=== PATIENT | male | born 1935 | race Caucasian/White ===

== ENCOUNTER → 2018-12-28 09:49 | Outpatient (CLI) | payer MEDICARE, OTHER, SELFPAY ==
--- NOTE | 2018-12-28 | DI.RAD.S_ITS ---
PROCEDURE: XR KNEE LT 3V INDICATIONS: L KNEE PAIN TECHNIQUE: 3 views of the knee were acquired. COMPARISON: None. FINDINGS: Bones: No fractures or dislocations. No suspicious bony lesions. Mild degenerative joint disease Soft tissues: No joint effusion. No suspicious soft tissue calcifications. IMPRESSION: Mild left knee joint degeneration. Dictated by: Usman Ackerman M.D. on 12/28/2018 at 11:32 Approved by: Usman Ackerman M.D. on 12/28/2018 at 11:46
== END ==
PROVIDERS: PCP Family Medicine; Visit Provider Family Medicine
DX: M25.562 Pain in left knee (principal); M17.12 Unilateral primary osteoarthritis, left knee
CPT/HCPCS: 73562

== ENCOUNTER → 2020-01-30 14:09 | Outpatient (CLI) | payer MEDICARE, OTHER, SELFPAY ==
[2020-01-31 09:23] LABS: COVID19 Sendout Not Detected (Not Detect)
== END ==
PROVIDERS: PCP Family Medicine; Visit Provider Physician Assistant
DX: Z01.812 Encounter for preprocedural laboratory examination (principal)
CPT/HCPCS: 87635

== ENCOUNTER 2020-02-02 10:58 | Day surgery (SDC) | payer MEDICARE, OTHER, SELFPAY ==
[2020-01-28 07:39] VITALS: BMI 25.2
[2020-02-02] VITALS (8 sets, daily range): BP systolic 125–155; BP diastolic 70–79; PULSE 68–99; RESP 8–16; TEMP 36.3–36.8; O2SAT 92–99; BMI 25.0
[2020-02-02] MEDS: GABAPENTIN 300 MG CAPSULE PO (11:53)
[2020-02-02] MEDS: LACTATED RINGERS 1,000 ML 42 ML IV ×2 (11:53→14:38)
[2020-02-02] MEDS: ACETAMINOPHEN 325 MG TABLET 975 MG PO (11:53)
--- NOTE | 2020-02-02 12:51 | PM.PREOP ---
Pre-operative Note COVID-19 COVID-19 status: Negative Result date/Date tested (Pos, Neg/Pending): 01/30/20 Interval Note History & Physical reviewed/Exam performed by Physician: Yes Changes to H&P: No
[2020-02-02] MEDS: CEFAZOLIN 2 GM/100 ML FROZ.PIGGY IV (13:15)
[2020-02-02] MEDS: BUPIVACAINE 0.5% (PF) VIAL 30 ML INJ (13:38)
--- NOTE | 2020-02-02 13:39 | SUR.OPER ---
Supine on padded OR bed, head on pillow, arms secured on padded arm boards at <90 degrees abduction, legs uncrossed, safety belt at thigh, tape over blanket over lower legs.
[2020-02-02] MEDS: CEFAZOLIN 1 GM/50 ML FROZ.PIGGY IV (14:55)
--- NOTE | 2020-02-02 16:15 | P.OP_ITS ---
Operative Date/Time/Diagnoses Date of procedure: 02/02/20 Time of procedure: 16:15 Pre-op diagnosis: Bilateral inguinal hernias reducible Post-op diagnosis: other (Bilateral recurrent inguinal hernias reducible (patient gave no history of prior inguinal hernia repairs.)) Procedure & Clinicians Procedure: Bilateral repair of recurrent inguinal hernias with plug and patch technique Same procedure as scheduled: Yes Indications: Bilateral symptomatic hernias Surgeon: Romulo Jang Click Yes if Unassisted: Yes Anesthesia Type: General Operative Notes Findings: Once patient was clipped it was apparent that he has had bilateral inguinal hernia repairs. During the operation it was clear that they used mesh. He gave no history of this preoperatively. He only mentioned in umbilical hernia repair Closure Type: primary Specimen(s): none sent Prosthetic devices, grafts, tissues, transplants, or devices: Mesh Estimated Blood Loss (mL): 20 Blood products transfused: none Procedure in detail: The patient was placed supine on the operating room table and underwent general LMA anesthesia. He was prepped and draped in the usual fashion. A transverse incision was made overlying the left internal ring and carried down to the level of the external oblique. The external oblique was opened parallel with its fibers through the external ring. This entire area was scarred in by his prior operation and the inclusion of mesh. The cord structures were quite difficult to identify since the floor was essentially obliterated and preperitoneal fat was adherent to the overlying cord structures and the mesh in the region. I was able to separate I would appeared to be the cord structures and they were Elevated. The floor was opened and preperitoneal fat was reduced and a large plug was placed in the defect. It was tacked into place with interrupted 0 Ethibond suture and then the floor was closed over this large plug using 0 Ethibond sutures. A patch was placed across the floor and tacked at the pubic tubercle, the edge of mesh which was adherent to the rectus. Laterally to what appeared to be the ilioinguinal ligament, and superior lateral to the cord but under the external oblique which had fused to mesh at the prior operation. The opening was modified as necessary to prevent tight constriction of the cord. Sutures of 0 Tycron were used to secure the mesh. The external oblique was closed with a running 3 0 Vicryl. The subcu was closed with interrupted 3 0 Vicryl. The skin was closed with a running 4 0 Vicryl subcuticular Attention was turned to the opposite side where a mirror incision was made. It was carried down to the external oblique which was opened parallel with its fibers through the external ring. The dissection was a little easier on the right. I was able to identify the cord structures fairly well and them from the adherent underlying floor. They were elevated using a Larry drain. I the floor off some opened it and reduced a large amount of preperitoneal fat. From this point on the operation was identical placing a large plug and tacking it into place with a 0 Ethibond suture. The floor was closed over it with interrupted Ethibond suture. The patch was then placed and tacked to the pubic tubercle, the posterior lamella the anterior rectus sheath, the ilioinguinal ligament superior and lateral the cord but under the external oblique which had fused to mesh from the prior operation. The external oblique was closed with a running 0 Ethibond. The subcu was closed with interrupted 3 0 Vicryl and the skin was closed with a 4 0 Vicryl subcuticular stitch and Steri- Strips. Steri-Strips were also applied to the opposite side. Dressings were applied, the patient was awakened, and the patient was taken to the recovery area in good condition. Complications: none Post-operative Condition: stable Disposition: PACU
--- NOTE | 2020-02-02 16:20 | SUR.PHASEI ---
Denies pain/nausea, HOB elevated, juice given.
--- NOTE | 2020-02-02 16:29 | SUR.PHASEI ---
Pt is wearing one yellow ring/band. Dozing intermittently, Glasses returned to patient
--- NOTE | 2020-02-02 17:33 | SUR.PHASEII ---
Patient to car via wheelchair. Friend, Reese, picking patient up and taking home. All instructions reviewed with Reese and patient.
== END 2020-02-02 17:34 | disposition home or self-care (01) ==
PROVIDERS: PCP Family Medicine; Referring Provider Specialist; Visit Provider Specialist
PROC: (CPT 49520; principal; 2020-02-02 12:15)
DX: K40.21 Bilateral inguinal hernia, without obstruction or gangrene, recurrent (principal); E11.9 Type 2 diabetes mellitus without complications; K21.9 Gastro-esophageal reflux disease without esophagitis; Z79.84 Long term (current) use of oral hypoglycemic drugs
CPT/HCPCS: 49520; C1781; J0690; J1170; J1885; J2405; J2704; J3010

== ENCOUNTER → 2021-05-20 13:20 | Outpatient (CLI) | payer MEDICARE, OTHER, SELFPAY ==
--- NOTE | 2021-05-20 | DI.CT.S_ITS ---
PROCEDURE: CT CHEST WO CON INDICATIONS: Esophagitis, unspecified without bleeding TECHNIQUE: Noncontrast 5 mm thick sections acquired from the pulmonary apices to the posterior costophrenic angles. 1 mm lung window, 5 mm thick coronal and sagittal and 7 mm axial MIP reformats were then acquired. For radiation dose reduction, the following was used: automated exposure control, adjustment of mA and/or kV according to patient size. COMPARISON: None. FINDINGS: Image quality: Excellent. Lungs and pleura: Small region of mild subpleural ground-glass density within the left upper lobe anteriorly is present. There is mild dependent left basilar atelectasis versus pneumonia. There is a spiculated subpleural nodule within the right lower lobe anterolaterally measuring 5 mm (series 3, image 236). No pleural effusions or pneumothorax. Central and peripheral airways are patent and normal in caliber. Mediastinum: Heart size is normal. Severe calcification of the coronary vasculature. No pericardial effusion. No mediastinal adenopathy by size criteria. Thoracic aorta and central pulmonary arteries are normal in size. Esophagus is normal in caliber. Large hiatal hernia. Bones and chest wall: No suspicious bony lesions. No vertebral body compression fractures. No axillary or supraclavicular adenopathy by size criteria. Thyroid gland is within normal limits on noncontrast imaging . Abdomen: Visualized portions of the upper abdomen demonstrate multiple small calculi within the gallbladder lumen as well as several nonobstructing calculi within the left kidney, largest of which measures at least 20 mm diameter. Bilateral renal scarring is present. There is possible moderate right hydronephrosis. IMPRESSION: 1. Large hiatal hernia. No evidence of esophagitis by noncontrast chest CT. Endoscopy may be helpful for further assessment. 2. Coronary artery disease. 3. Right lower lobe pulmonary nodule. Follow-up is recommended as below. 4. Cholelithiasis. 5. Left renal calculi. 6. Bilateral renal scarring. 7. Possible right hydronephrosis. This could be further assessed initially with ultrasound, if clinically indicated. Fleischner Society criteria for SOLID lung nodule followup. Nodule size (mm)Low-risk patientHigh-risk patient<6 (single or multiple)No routine followup.Optional CT at 12 months. 6-8 (single or multiple)CT at 6-12 months, then optional CT at 18-24 mo.CT at 6-12 months, then CT at 18-24 months. >8 (single)CT, PET-CT, or biopsy at 3 months. Same as for low-risk pts. >8 (multiple)CT at 3-6 months, then optional CT at 18-24 mo.CT at 3-6 months, then CT at 18-24 months. Recommendations do not apply to lung cancer screening, patients with immunosuppression, or patients with known primary cancer. Dictated by: Edson Hurtado M.D. on 05/20/2021 at 14:28 Approved by: Edson Hurtado M.D. on 05/20/2021 at 14:34
== END ==
PROVIDERS: PCP Family Medicine; Referring Provider Family Medicine; Visit Provider Family Medicine
DX: R13.10 Dysphagia, unspecified (principal); K20.90 Esophagitis, unspecified without bleeding; K44.9 Diaphragmatic hernia without obstruction or gangrene; I25.10 Atherosclerotic heart disease of native coronary artery without angina pectoris; R91.1 Solitary pulmonary nodule; K80.20 Calculus of gallbladder without cholecystitis without obstruction; N20.0 Calculus of kidney
CPT/HCPCS: 71250

== ENCOUNTER → 2021-06-16 08:09 | Outpatient (CLI) | payer MEDICARE, OTHER, SELFPAY ==
--- NOTE | 2021-06-16 | DI.RAD.S_ITS ---
PROCEDURE: [place] BARIUM SWALLOW INDICATIONS: Chest pain on breathing;DYSPHAGIA COMPARISON: [facility], CT, CT CHEST WO CON, 05/20/2021, 13:29. FINDINGS: Limited single-contrast examination was performed secondary to patient factors. There is moderate aspiration of orally administered barium. There is a moderate hiatal hernia. There is a possible eccentric mass narrowing the distal esophagus. Evaluation is limited secondary to truncated examination. IMPRESSION: 1. Possible distal esophageal mass. Further assessment with endoscopy is recommended. 2. Moderate aspiration. Dictated by: Edson Hurtado M.D. on 06/16/2021 at 9:57 Approved by: Edson Hurtado M.D. on 06/16/2021 at 10:00
--- NOTE | 2021-06-16 08:28 | DI.CT.S_ITS ---
PROCEDURE: CT SOFT TISSUE NECK WO CON INDICATIONS: Chest pain on breathing;DYSPHAGIA TECHNIQUE: Non-contrast 3.0 mm axial sections acquired from the sella to the aortic arch. Additional oblique axial 3.0 mm sections acquired through the pharynx. 3 mm thick coronal and sagittal reformats were generated. For radiation dose reduction, the following was used: automated exposure control. COMPARISON: [facility], MR, MR FACE WITH/WITHOUT CONTRAST, 11/23/2020, 12:27. [facility], RF, [place] BARIUM SWALLOW, 06/16/2021, 8:25. [facility], CT, CT CHEST WO CON, 05/20/2021, 13:29. FINDINGS: Image quality: Excellent. Lymph nodes: No enlarged lymph nodes seen throughout the neck. Vessels: Non-opacified vessels appear normal in caliber. Neck spaces: As noted on prior exam, there is asymmetry at the left base of tongue. Exam is limited without contrast. Glands: The parotid and submandibular glands appear normal, without stones. 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 Lung apices appear clear. Superficial soft tissues appear normal. Left zygomatic arch postsurgical fixation is present. There is opacification and sclerosis within the left mastoid air cells. In addition, there is absence of portions of the medial mastoid air cells as well as medial sphenoid and petrous bones. There is scalloping and lucency extending to the left side of the skull base. It is noted that this region was involved with enhancing soft tissue mass is seen on prior MR 11/23/2020. As identified on prior exam, perineural spread was felt to be present. This cannot be evaluated on current exam. IMPRESSION: 1. Portions of the left mastoid, sphenoid and skull base osseous destruction as described above, corresponding to area of previously enhancing mass lesion most consistent with malignancy. Extent of soft tissue mask cannot be evaluated on current exam secondary to lack of contrast. In addition, no interval prior exams are available for comparison to determine extent of potential surgical intervention. As further investigation is warranted, MRI neck with and without contrast should be obtained. 2. Asymmetric appearance of the left tongue base, noting poorly defined left tongue base mass on prior exam. This exam is limited secondary to lack of contrast and as clinically indicated, further evaluation with contrast CT neck or MR is recommended. Dictated by: Josseline Mendoza M.D. on 06/16/2021 at 11:26 Approved by: Josseline Mendoza M.D. on 06/16/2021 at 11:51
== END ==
PROVIDERS: PCP Family Medicine; Referring Provider Family Medicine; Visit Provider Family Medicine
DX: R22.0 Localized swelling, mass and lump, head (principal); R13.10 Dysphagia, unspecified; R07.1 Chest pain on breathing; R06.00 Dyspnea, unspecified; K44.9 Diaphragmatic hernia without obstruction or gangrene
CPT/HCPCS: 70490; 74220

== ENCOUNTER → 2022-01-11 09:01 | Outpatient (CLI) | payer MEDICARE, OTHER, SELFPAY ==
--- NOTE | 2022-01-11 09:03 | DI.CT.S_ITS ---
PROCEDURE: CT CHEST ABDOMEN WO CON INDICATIONS: Pain in throat;Aphagia;Abnormal weight loss TECHNIQUE: After the administration of oral contrast, 5 mm thick sections acquired from the pulmonary apices to the iliac crests. 5 mm thick coronal and sagittal reformats acquired, with additional 7 mm coronal MIP reformats through the lungs. For radiation dose reduction, the following was used: automated exposure control, adjustment of mA and/or kV according to patient size. COMPARISON: [facility], CT, CT CHEST WO [facility], 05/20/2021, 13:29. FINDINGS: Image quality: Excellent. CHEST: Lungs and pleura: No acute pulmonary opacities. The previously seen subpleural nodule within the right lung base anterolaterally has increased in size, currently measuring 7 mm diameter. Mild bibasilar scarring is present. Mild biapical scarring is present. Mild reticulonodular density within the left lung base posteriorly. Calcified granuloma within the superior aspect of the right major fissure. No pleural effusions or pneumothorax. Central and peripheral airways are patent and normal in caliber. Mediastinum: Heart size is normal. Trace pericardial effusion, new since the prior examination Severe calcification of the coronary vasculature. No pericardial effusion. No mediastinal adenopathy by size criteria. Thoracic aorta and central pulmonary arteries are normal in size. Esophagus is normal in caliber. No change in large hiatal hernia. Chest wall: No axillary or supraclavicular adenopathy by size criteria. Thyroid gland is grossly unremarkable on noncontrast imaging . ABDOMEN: Solid organs: Liver is normal in size. Gallbladder demonstrates calculi within the gallbladder lumen without evidence of wall thickening to indicate cholecystitis. . Pancreas is normal in contours. Spleen is normal in size. No adrenal nodules. Both kidneys are normal in size. There are multiple nonobstructing calculi within the right interpolar kidney, largest of which is inferiorly, measuring 19 mm diameter. Multiple nonobstructing calculi within the left kidney are present, as before, largest of which measures 16 mm diameter within the renal pelvis. No definite hydronephrosis. Peritoneum and bowel: Small and large bowel loops are normal in caliber and wall thickness. No free fluid or air. Nodes and vessels: No retroperitoneal or mesenteric adenopathy by size criteria. Aorta and inferior vena cava are normal in caliber. Miscellaneous: No ventral hernias. No change in sclerotic focus within the T10 vertebral body. IMPRESSION: 1. Reticulonodular density within the left lung base, suggestive of pneumonitis. 2. Hiatal hernia. 3. Coronary artery disease. 4. Increased right lung base nodule. Initial further assessment with PET-CT examination is recommended. 5. Nonobstructing bilateral renal calculi. 6. Cholelithiasis. No evidence of cholecystitis. 7. New trace pericardial effusion. Dictated by: Edson Hurtado M.D. on 01/11/2022 at 9:37 Approved by: Edson Hurtado M.D. on 01/11/2022 at 9:42
== END ==
PROVIDERS: PCP Family Medicine; Referring Provider Family Medicine; Visit Provider Family Medicine
DX: R07.0 Pain in throat (principal); R13.0 Aphagia; R63.4 Abnormal weight loss; I25.10 Atherosclerotic heart disease of native coronary artery without angina pectoris; K44.9 Diaphragmatic hernia without obstruction or gangrene; R91.1 Solitary pulmonary nodule; N20.0 Calculus of kidney; K80.20 Calculus of gallbladder without cholecystitis without obstruction
CPT/HCPCS: 71250; 74150

== ENCOUNTER → 2022-02-23 10:49 | Outpatient (CLI) | payer MEDICARE, OTHER, SELFPAY ==
[2022-02-23 11:58] LABS: COVID19 -Nasal RAPID Negative (Negative)
== END ==
PROVIDERS: PCP Family Medicine; Visit Provider Surgery
DX: Z20.822 Contact with and (suspected) exposure to COVID-19 (principal); Z01.812 Encounter for preprocedural laboratory examination
CPT/HCPCS: 87635

== ENCOUNTER 2022-02-25 10:35 | Inpatient (IN) | payer MEDICARE, OTHER, SELFPAY ==
[2022-02-21 12:00] VITALS: BMI 17.3
[2022-02-24] VITALS (16 sets, daily range): BP systolic 128–145; BP diastolic 48–78; PULSE 68–92; RESP 16–22; TEMP 36–36.4; O2SAT 74–99; BMI 17.3
[2022-02-24] MEDS: LACTATED RINGERS 1,000 ML 100 ML IV ×3 (07:26→21:46)
--- NOTE | 2022-02-24 07:45 | PM.PREOP ---
Pre-operative Note Interval Note History & Physical reviewed/Exam performed by Physician: Yes Changes to H&P: No
[2022-02-24] MEDS: CEFAZOLIN 2 GM/20 ML SYRINGE IV (07:53)
[2022-02-24] MEDS: BUPIVACAINE 0.25% (PF) VIAL 30 ML INJ (08:07)
--- NOTE | 2022-02-24 08:10 | SUR.OPER ---
Supine on padded OR bed, head on pillow, arms secured on padded arm boards at <90 degrees abduction, legs uncrossed, safety belt at thigh, tape over blanket over lower legs.
--- NOTE | 2022-02-24 08:29 | SUR.OPER ---
Patients Upper denture left in place, Left 4th finger gold colored ring taped in place, patient unable to remove. Right Hearing aid removed in OR and placed in Specimen cup with patient label and brought with patient to PACU.
--- NOTE | 2022-02-24 09:08 | SUR.PHASEI ---
0905: Report received from RONALDO Fonseca and time allowed for questions, this RN to assume care of pt.
--- NOTE | 2022-02-24 09:09 | PM.OP.1 ---
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 Bumper at 3 cm from the skin. Specimen(s): none sent Estimated Blood Loss (mL): 10 Procedure in detail: Patient was brought to the operating room placed supine on the table. Bilateral lower extremity compression devices were applied. He received 2 g of Ancef prior to skin incision. He was prepped and draped in sterile fashion. General anesthesia was induced he was intubated with an endotracheal tube. A upper midline incision on the abdomen was made. Fascia was incised the abdomen was entered atraumatically. The stomach was grasped and pursestring was formed with 2 0 silk suture within the body of the stomach x2. Incision was made in the left upper quadrant for the gastrostomy tube which was then placed into the abdomen. Gastrostomy was made and the tube was inserted into the stomach the pursestring was then tightened and secured. The balloon was inflated with 10 mL of saline. The stomach was then tacked to the anterior abdominal wall in 4 quadrants using silk suture. Hemostasis was achieved. The fascia was then closed with running 1. PDS suture in subcutaneous closed with Vicryl and the skin with a running Monocryl. Skin was then sealed with Dermabond and reinforced with Steri-Strips. The bumper of the gastrostomy tube sits at 3 cm from the skin. Patient tolerated procedure well was extubated and transferred to recovery in stable condition. Complications: none Post-operative Condition: stable Disposition: observation
--- NOTE | 2022-02-24 09:35 | SUR.PHASEI ---
3002: Pt A&Ox4, VSS, dressing C/D/I, reports pain as tolerable, appears in no distress and ready to transfer to room. Attempt to call report, RN busy at this time, will return call when available. RONALDO Cedillo x [phone]
--- NOTE | 2022-02-24 09:50 | SUR.PHASEI ---
Report given to receiving RN using SBAR with time allowed for questions. Pt to be transferred to room 218. Left message for spouse.
--- NOTE | 2022-02-24 10:02 | PC.NURSE ---
Day shift: Pt on AC unit from PACu at approx 1000. He is A&Ox4. Reports pain as tolerable. Denies any nausea. Oriented to room and call light. TOlerating SCD's. Call light in reach. Agreees to not get OOB w/o help from staff. Op-site tube appears patent and area/dressing CDI.
[2022-02-24] MEDS: MORPHINE 2 MG/ML INJ IV ×4 (11:58→23:57)
--- NOTE | 2022-02-24 12:21 | DIET.CONS ---
Dietary Consultation Note Assessment: 86y M s/p PEG placement referred to nutrition for TF reccs. Pt with esophageal cancer unable to tolerate any oral intake except small sips water to wet mouth. Pt has had 32% unintentional weight loss in <1y (severe) with current BMI 17.4 (severe). Pt is 25% below ideal body weight. Pt on LR IVF running at 100mL/h. NFPE indicates severe cancer cachexia with severe muscle and fat wasting globally. Pt at high risk for refeeding sydrome per 3 of 4 NICE criteria: BMI <18.5, unintentional weight loss >10% in past 3-6mo, little or no nutritional intake for more than 5d. Pt can start TF morning of 02/25/22 (12-24h after PEG placement). Limit day 1 TF to no more than 500kcals with refeeding labs bid repleting as needed. Pt not be tolerating goal rate TF for up to a week, pt can d/c prior to hitting goal feeds as long as pt not refeeding. Pt to work with home infusion RD to optimize home TF after d/c as pts nutritional goals will need to be adjusted as he gains weight. Jevity 1.2 at goal rate provides 1728 kcals (30kcal/kg), 80g PRO (1.4g/kg), 244g CHO, 57g fat, 1162mL feed water, feeds plus flushes provide 1740mL fluids (30mL/kg). 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 Interventions: 1. Pt at high risk of refeeding syndrome. Limit day 1 TF to no more than 500 calories. 2. Recc bid refeeding labs repleting as needed (Mg, K+, phos) until d/c. 3. Recc initiating gravity bolus enteral feeding of Jevity 1.2 via PEG tube on 02/25/22 as follows: Day 1: 120mL formula with 60mL free water flushes before and after each feed at 0800, 1000, 1300, 1500, and 1900. Day 2: 180mL formula with 60mL free water flushes before and after each feed at 0800, 1000, 1300, 1500, and 1900. Day 3: 240mL formula with 60mL free water flushes before and after each feed at 0800, 1000, 1300, 1500, and 1900. Day 4 (Goal Rate): 280mL formula with 60mL free water flushes before and after each feed at 0800, 1000, 1300, 1500, and 1900. If pt showing signs of formula intolerance or refeeding, do not advance to higher feeding rate and replete to WNL. 4. HOB elevated >30 degrees for 60 min after feeding to reduce risk of aspiration. 5. Okay for pt to d/c prior to meeting goal rate as long as pt tolerating formula, refeeding labs stable, home infusion company ready to start service. 6. [facility] ([phone]) can send pt with 1 or 2 bottles formula if gap in home infusion company starting service. EER: 1,728kcals (30kcal/kg per PCM), 80g PRO (1.4g/kg per PCM), 1,740mL fluids (30mL/kg) Monitoring/Evaluations: f/u Sunday am when RD in office. If RD needs to be contacted before then, please alert Charge Nurse. Electronically Signed by: Dennise Jo 02/24/22 12:21 Clinical Dietitian [address] [address]
--- NOTE | 2022-02-24 14:41 | CM.DPNOTE ---
DCP Note 86 yo male w/ known esophageal cancer, has not been seen by oncology per surgeon, w/scheduled, outpatient placement of g tube by Dr Celis today, now in Rm 218 and requires assist w/arranging outpatient management of newly placed g tube w/feedings, PCP Dr Arzate to manage Spoke w/patient, introduced self and role. Patient lives in an [facility], his lives separately in the [facility] assisted living facility. Patient plans to return home tomorrow, agreeable to referral to an infusion company, provided MCR choice list...no preference. Placed call to [place] [facility] and could not get a hold of someone for referral Placed call to Rex at [facility] and discussed referral . Faxed referral information including [employer] hr developer Dennise Knowles's thorough consult note outlining recs. Plan: Patient expected to DC tomorrow, home via friend's pov, leaving with 2 days of formula. [facility] following for ongoing management/assist, PCP Dr Arzate to follow these orders CM team- Pls f/u w/[facility] Sunday and r/o need for THIAGO RN (?) JABARI
--- NOTE | 2022-02-24 21:39 | PC.NURSE ---
Addendum entered by Estefany Uribe R.N. 02/25/22 07:00: RT consulted re: low oxygenation and they placed him on HFNC and is currently at 3L/min with sat of 94% Addendum entered by Estefany Uribe R.N. 02/25/22 05:50: Per RNNabeel, patient's O2 sat was down into 70's so he increased oxygen to 5L/min per NC and is now at 92% Addendum entered by Estefany Uribe R.N. 02/25/22 02:47: Patient noted to desat into 80's when asleep so oxygen started at 2L/min per NC. Original Note: Patient is alert and oriented. 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 Breath sounds CTA with RA sat of 95%; on continuous oximetry. HRR. Denies nausea. NPO due to dysphagia related to esophageal cancer. Had g-tube placed earlier today and tube is intact with no drainage on dressing and no redness around insertion site. Did complain of RLQ abdominal pain and was nmedicated earlier with Morphine. BT present. Voiding per urinal; denies dysuria. Is able to turn himself in bed. Gait not assessed but is reportedly globally weak. Wearing bilateral calf SCD's. Fall risk score is high and bed alarm is activated.
[2022-02-25] VITALS (15 sets, daily range): BP systolic 120–131; BP diastolic 57–66; PULSE 68–82; RESP 16–18; TEMP 36.1–36.4; O2SAT 89–96
[2022-02-25] MEDS: MORPHINE 2 MG/ML INJ IV ×2 (04:26→08:39)
[2022-02-25] MEDS: LACTATED RINGERS 1,000 ML 100 ML IV (07:28)
[2022-02-25] MEDS: ENOXAPARIN 40 MG/0.4 ML SYRINGE SUBCUT (08:37)
--- NOTE | 2022-02-25 12:27 | P.PN_ITS ---
Subjective Subjective Date Patient Seen: 02/25/22 Time Patient Seen: 12:27 Interval history: No acute events. Tolerated 1st tube feeding without issue. Exam Vital Signs (past 8 hours): - 02/25/22 05:09 02/25/22 05:09 02/25/22 06:00 Temperature 97.4 F L Pulse Rate 70 Respiratory Rate 16 Blood Pressure 120/57 L Pulse Oximetry 96 96 91 Oxygen Delivery Method Nasal Cannula High Flow Nasal Cannula Oxygen Flow Rate 2 6 02/25/22 07:40 02/25/22 07:52 02/25/22 08:18 Temperature Pulse Rate 76 Respiratory Rate 18 Blood Pressure 124/59 L Pulse Oximetry 91 92 Oxygen Delivery Method High Flow Nasal Cannula Oxygen Flow Rate 3 3 02/25/22 10:20 02/25/22 11:30 02/25/22 12:26 Temperature 97.6 F Pulse Rate 81 Respiratory Rate 18 Blood Pressure 126/61 Pulse Oximetry 95 90 L 93 Oxygen Delivery Method Room Air Oxygen Flow Rate 6 5 Oxygen Delivery Method Room Air Oxygen Flow Rate 5 Narrative Exam Narrative: General elderly man alert no distress Abdomen soft gastrostomy tube in place [facility] Medical History (Updated 02/18/22 @ 08:11 by Tyson Celis MD) Diabetes type 2, controlled Essential tremor Gastroesophageal reflux disease Hx of benign neoplasm of brain Hx of bladder cancer Hx of renal calculi Hypertension Surgical History (Updated 02/21/22 @ 12:21 by Antonia Young RN) History of hydrocelectomy (06/19/08) Hx of bilateral inguinal hernia repair (02/02/20) Hx of craniotomy Hx of hernia repair (06/19/08) Family History Father Diabetes mellitus Social History marital status: household members: spouse and none occupational status: previously employed Smoking Status: Former smoker alcohol intake: current substance use type: does not use Assessment & Plan Post-op Postoperative Procedures: Procedures Operation Date: 02/24/22 07:45 Actual Procedure Side Surgeon p Open Gastrostomy Tube placement Not Applicable Tyson Celis MD Postoperative status narrative: 86-year-old 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 He is at high risk of refeeding syndrome and needs careful gradual increase in bolus feeds. Nutrition recommendations were reviewed and appreciated. Covert bolus enteral feeding of Jevity 1.2 via PEG tube Day 1(02/25/22): 120mL formula with 60mL free water flushes before and after each feed at 0800, 1000, 1300, 1500, and 1900. Day 2 (02/26): 180mL formula with 60mL free water flushes before and after each feed at 0800, 1000, 1300, 1500, and 1900. Day 3 (02/27): 240mL formula with 60mL free water flushes before and after each feed at 0800, 1000, 1300, 1500, and 1900. Day 4 (02/28 Goal Rate): 280mL formula with 60mL free water flushes before and after each feed at 0800, 1000, 1300, 1500, and 1900. Quality VTE Deep Vein Thrombosis/Pulmonary Embolism Present on Admission: No
[2022-02-25] MEDS: OXYCODONE 5 MG/5 ML ORAL SOLUTION PO (12:57)
--- NOTE | 2022-02-25 13:28 | CM.DANOTE ---
Initial Discharge Planning note: 86 year old cachectic male admitted 02/24/2022 with malignant neoplasm of esophagus and plan for PEG tube procedure which was done 02/24/22. Patient received first few doses of enteral feeding today so far and is tolerating. Referral was sent by Gaby yesterday to [facility] for tube feeding supplies and management. Per MD he is not discharging til Sunday or Sunday. PCP: Dr Angel Arzate Payer: Medicare, for Life Patient lives alone in the [facility] in [place] and his spouse lives in the [facility]. When asked, he states he has the funds to live in [facility] if needed. Currently he manages his life without help except for friends. No children he states. He drives and is not interested in Home Health. He states a friend will pick him up for transport home when time. When asked about his condition, growing tumor he does not want to speak about. He states he sees his doctor regularly and saw an ENT about 3 months ago. He is not forthcoming with information and many questions must be asked to sort out the picture. He has not seen an oncologist and does not think he has cancer. Spoke with Simone at [facility] and the nurse library circulation clerk and let her know that patient will not discharge til early next week. He is currently inpatient. P: follow closely and notify [facility] when know discharge date. KAITYLNN Discharge Planning/Care Management CM Discharge Assessment Start: 02/25/22 13:18 Freq: Status: Active Protocol: Document 02/25/22 13:19 (Rec: 02/25/22 13:28 [id number]) Discharge Planning Assessment Assigned Cotton Machine Operator Clary Canseco RN/MARBELLAP Advance Directives? Yes Advance Directives on File No History Provided By Patient,Medical Record Has Patient been admitted in last 30 No days? Prior Living Arrangements House Comment Lives in [facility] with [facility]. His spouse is in the [facility] there. He states he has funds that he could also go to [facility] if needed. Household Members none Comment lives alone. No other family involved. Has friends. Type of transporation used prior to Drives own vehicle admit Independent with ADL's Yes Is patient alert and oriented? Yes Caregiver for Another No Barriers to Discharge Yes Comment Needs to learn how to handle new gastrostomy tube. [facility] will manage. Discharge Plan Home Transportation Arrangement Friend Mr Ponce will provide transport home in private vehicle. Referrals Initiated Other Additional Comment [facility] for tube feeding supplies and management. Patient drives so does not qualify for HH and states he does not want HH. Whiteboard Updated in Patient Room with Yes name and ext. # of Cotton Machine Operator Review Status In Process Next Review Type Continued Stay Review Pre-Anesthesia Assessment Start: 02/21/22 12:00 Freq: Status: Complete Protocol: Document 02/21/22 12:00 [facility] (Rec: 02/21/22 12:22 [facility] [id number]) Pre-Anesthesia Assessment Preferred Name Don Patient Information Reviewed Via Chart Review Comment COVID screen not identified Primary Care Provider Angel Arzate Seen Specialist in Last 12 Months Yes Specialist Seen General surgeon Primary Language Barbadian Preferred Language Barbadian Representative Phlebotomy Services Required No Height 182.88 cm Weight 58.06 kg Body Mass Index (BMI) 17.3 Hearing Ability Hard of Hearing,Use of Hearing Aid Comment Very [place] even with hearing aid Hx Anesthesia Reactions No: Severe difficulty with swallowing Hx Family Anesthesia Reaction No Hx Malignant Hyperthermia No Hx Blood Transfusion Reaction No Anesthesia Review Requested No Associate Vice President No alcohol intake current alcohol intake frequency holidays/special occasions only Smoking Status Never smoker how long ago did patient quit smoking 2003 Substance Use Type does not use Patient is completely paralyzed or No completely immobile Mental Status Oriented to own ability Hx Sleep Apnea No CPAP/BIPAP use not prescribed Currently Taking a Beta Kim No Anti-Coagulant Therapy No Cardiac Testing No Hx Pacemaker/ICD No Pacemaker Rep Required? No Diet Type At Home Dysphagia dysphagia Yes: Severe difficulty with swallowing Comment Recent weight loss due to not being able to take in solid foods Urinary Catheter Present No Hx Urinary Self Catheterization No Diabetes Yes Presence of External or Internal Medical No Devices Marital Status Lives With none Patient Discharge Plan Description Return Home Advance Directives? Yes Power of Medical Physics Researcher No
--- NOTE | 2022-02-25 15:22 | PC.NURSE ---
Day shift: Dr Celis contacted by phone and it is OK to not give the 1500 bolus feeding today. Pt residual amount approx 240mls. Plan is to check residual again at approx 1830 and give feeding bolus as ordered. Pt is also aware of this plan.
[2022-02-25] MEDS: SODIUM CHLORIDE 0.9% FLUSH 10 ML IV (20:00)
--- NOTE | 2022-02-25 21:52 | PC.NURSE ---
Addendum entered by Estefany Uribe R.N. 02/26/22 01:04: Patient's O2 sat again down into upper 80's but noted to be mouth breathing. Asked patient if he could breathe through his nose and he states not really. Cannula placed in patient's mouth and sat up to 91% on 8L/min O2. Original Note: Patient is alert and oriented. Breath sounds coarse in bilateral upper lobes and is currently on oxygen at 4L/min per NC with sat of 91%; on continuous oximetry. HRR. Denied nausea. BT hypoactive and denies having flatus. Is voiding per urinal and denies dysuria. Is able to move himself in bed. Gait not assessed at this time but has generalized weakness. States abdominal pain is tolerable tonight and rates severity as only 2/10. Wearing bilateral calf SCD's. Fall risk score is high and bed alarm is activated. Started tube feedings earlier today; remains NPO.
[2022-02-26] VITALS (16 sets, daily range): BP systolic 103–134; BP diastolic 33–61; PULSE 79–93; RESP 16–18; TEMP 35.7–36.8; O2SAT 88–99
[2022-02-26 06:02] LABS: Phosphorous 2.8 mg/dL (2.3-3.7)
[2022-02-26 08:19] LABS: BUN Creatinine Ratio 17.6 (6-22); Blood Urea Nitrogen 13 mg/dL (9-20); Carbon Dioxide 33 mmol/L (22-32); Chloride 100 mmol/L (98-107); Estimated Glomerular Filt Rate > 60 mL/min (>60); Glucose 138 mg/dL (80-110); HEMOLYSIS < 15 (0-50); Magnesium 1.7 mg/dL (1.6-2.3); Potassium 3.7 mmol/L (3.4-5.1); Sodium 139 mmol/L (137-145)
[2022-02-26] MEDS: ENOXAPARIN 40 MG/0.4 ML SYRINGE SUBCUT (08:26)
[2022-02-26] MEDS: SODIUM CHLORIDE 0.9% FLUSH 10 ML IV ×2 (08:27→21:00)
--- NOTE | 2022-02-26 11:01 | P.PN_ITS ---
Subjective Subjective Date Patient Seen: 02/26/22 Time Patient Seen: 11:01 Interval history: Tolerated 24 hours of for tube feeds. No nausea. Improving incisional abdominal pain Exam Vital Signs (past 8 hours): - 02/26/22 05:36 02/26/22 05:44 02/26/22 08:09 Temperature 97.2 F L Pulse Rate 80 Respiratory Rate 18 Blood Pressure 132/58 L Pulse Oximetry 93 94 Oxygen Delivery Method High Flow Nasal Cannula High Flow Nasal Cannula Oxygen Flow Rate 4 6 02/26/22 07:28 02/26/22 10:09 Temperature 97.7 F Pulse Rate 82 Respiratory Rate 16 Blood Pressure 125/60 Pulse Oximetry 90 L 95 Oxygen Delivery Method High Flow Nasal Cannula Oxygen Flow Rate 4 Oxygen Delivery Method High Flow Nasal Cannula Oxygen Flow Rate 4 Narrative Exam Narrative: General elderly man no distress cachectic Abdomen soft nontender. Gastrostomy tube in place. Objective Labs Result Diagrams: 02/26/22 05:29 Labs: Laboratory Results - last 24 hr 02/26/22 02/26/22 05:29 05:29 Sodium 139 Potassium 3.7 Chloride 100 Carbon Dioxide 33 H BUN 13 Creatinine 0.74 Estimated GFR > 60 BUN/Creatinine Ratio 17.6 Glucose 138 H Calcium 9.0 Phosphorus 2.8 Magnesium 1.7 PFSH Medical History (Updated 02/18/22 @ 08:11 by Tyson Celis MD) Diabetes type 2, controlled Essential tremor Gastroesophageal reflux disease Hx of benign neoplasm of brain Hx of bladder cancer Hx of renal calculi Hypertension Surgical History (Updated 02/21/22 @ 12:21 by Antonia Young RN) History of hydrocelectomy (06/19/08) Hx of bilateral inguinal hernia repair (02/02/20) Hx of craniotomy Hx of hernia repair (06/19/08) Family History Father Diabetes mellitus Social History marital status: household members: none occupational status: previously employed Smoking Status: Former smoker alcohol intake: current substance use type: does not use Assessment & Plan Post-op Postoperative Procedures: Procedures Operation Date: 02/24/22 07:45 Actual Procedure Side Surgeon p Open Gastrostomy Tube placement Not Applicable Tyson Celis MD Postoperative status narrative: 86-year-old man with obstructive esophageal cancer and subsequent severe acute on chronic protein calorie malnutrition postop day 2 status post gastric open gastrostomy tube placement. Due to the risk of refeeding syndrome will slowly advanced tube feeds according to nutritional recommendations [place] bolus enteral feeding of Jevity 1.2 via PEG tube Today/postop day 2 (02/26): 180mL formula with 60mL free water flushes before and after each feed at 0800, 1000, 1300, 1500, and 1900. Day 3 (02/27): 240mL formula with 60mL free water flushes before and after each feed at 0800, 1000, 1300, 1500, and 1900. Day 4 (02/28 Goal Rate): 280mL formula with 60mL free water flushes before and after each feed at 0800, 1000, 1300, 1500, and 1900. Possible discharge home tomorrow if tolerant of tube feeds and home nutritional equipment and teaching are available Quality VTE Deep Vein Thrombosis/Pulmonary Embolism Present on Admission: No
[2022-02-26] MEDS: MAGNESIUM SULFATE 2 GM/50 ML PIGGYBACK IV (11:32)
--- NOTE | 2022-02-26 14:34 | PC.NURSE ---
Day shift: Per telephone conversation with Dr Celis ok to cut back on the amount of bolus feedings. Per MD give feedings at breakfast, lunch and diner times and ok for a snack feeding also. Plan to follow the bolus amounts per orders but not the times. Last 2 bolus feeding attempts had over 200mls residual. Dr Celis aware. Will inform Pt of this also.
[2022-02-27] VITALS (14 sets, daily range): BP systolic 103–135; BP diastolic 52–66; PULSE 82–93; RESP 16–21; TEMP 35.9–36.8; O2SAT 91–100
[2022-02-27 07:38] LABS: Phosphorous 2.9 mg/dL (2.3-3.7)
[2022-02-27 07:39] LABS: BUN Creatinine Ratio 24.4 (6-22); Blood Urea Nitrogen 19 mg/dL (9-20); Calcium 9.4 mg/dL (8.4-10.2); Carbon Dioxide 37 mmol/L (22-32); Chloride 99 mmol/L (98-107); Estimated Glomerular Filt Rate > 60 mL/min (>60); Glucose 150 mg/dL (80-110); HEMOLYSIS < 15 (0-50); Potassium 3.6 mmol/L (3.4-5.1); Sodium 140 mmol/L (137-145)
[2022-02-27 07:44] LABS: Magnesium 2.1 mg/dL (1.6-2.3)
--- NOTE | 2022-02-27 08:44 | CM.MNRNOTE ---
Addendum entered by Shaniqua Booker R.N. 02/27/22 15:35: Patient did not tolerate deep suction, he still has phlegm in this throat but is not coughing at this time. He will start on sliding scale insulin at 1645. Resting supine now. Voiding per urinal, up x1 to use commode. Addendum entered by Shaniqua Booker R.N. 02/27/22 14:36: called and patient is going to be discharged tomorrow. We will be changing his tube feeds to something that is more carb consistent as his blood sugars have risen, they have been 141,242, and 219. He is also having a lot of coughing and secretion build up. Now has orders for naopharnyx suction and is agreeable. Addendum entered by Shaniqua Booker R.N. 02/27/22 12:56: Patient is having some difficulty clearing his secretions, offered to suction him and he states that this does not work. He is trying to bring some of this up himself by clearing his throat will continue to monitor patient. Addendum entered by Shaniqua Booker R.N. 02/27/22 12:44: Patients noon gravity feed of jevity went well, he had 240cc in and 120cc of water before and after each flush. BS 141,240s. Addendum entered by Shaniqua Booker R.N. 02/27/22 10:23: Patient tolerated his 1000 gravity feed of jevity, he had 5cc of residual and he was bolused with 60cc of water before and after feed Original Note: Assess-Patient is alert and oriented x4, he is pleasant and unable to converse much due to his Esophageal Cancer. He denies pain, given warm blankets. Patient is thin, one person assist to bsc. He has a peg tube. 0800- 240ml of Jevity put through tube at gravity, flushed with 60 ml of water before and after. Patients residual before start was 20cc of bile content. Next feeding will be at 1000am.
[2022-02-27] MEDS: SODIUM CHLORIDE 0.9% FLUSH 10 ML IV ×2 (09:30→20:00)
[2022-02-27] MEDS: ENOXAPARIN 40 MG/0.4 ML SYRINGE SUBCUT (09:30)
--- NOTE | 2022-02-27 12:20 | DIET.CONS2 ---
Addendum entered by Dennise Jo 02/27/22 16:03: changed pt to Glucerna 1.2 formula to help with hyperglycemia. Pt to start this formula at 1900 tonight. All else remains the same. Original Note: Dietary Inpatient Consultation Note Admission Date: 02/25/2022 10:35 Pt tolerating bolus EN well. Pt not yet at goal rate as pt skipping a few feedings daily secondary to feelings of oversatiety. Pt voices confidence in being able to manage PEG at home with self feeding. Regarding Refeeding: Mg, K+, and phos all WNL without need for repletion, however, pt needing some O2 support with post-prandial BGs in 140-[address] pharmacy who will request insulin coverage from surgery who is primary. Continue with bolus feedings as tolerated. If pt continues to be hyperglycemic will consider carb control formula. Diet: 02/24/22 06:44 NPO Diet Diet Modifications: NPO Type: Strict 02/25/22 Lunch Tube Feeding Diet Diet Modifications: Safety Tray needed?: No TF Supplement type: Jevity 1.2 wolfgang TF mode of delivery: Bolus Starting flow rate mL/hr: 0 Flow rate goal mL/hr: 0 Titration Schedule to reach Goal Rate: 0 Max total daily volume in mL: 600 Free fluid: 120 Free Water Frequency: Q4H Comment: Patient is at high risk of refeeding syndrome. REFER TO DIETARY NOTE Nutrition Type of Feeding Tube PEG 02/26/22 23:25 Type of Feeding Tube Gastrostomy 02/26/22 16:07 Type of Feeding Tube Gastrostomy 02/26/22 13:32 Type of Feeding Tube Gastrostomy 02/26/22 10:29 Type of Feeding Tube Gastrostomy 02/25/22 18:50 Type of Feeding Tube Gastrostomy 02/25/22 15:18 Type of Feeding Tube Gastrostomy 02/25/22 13:10 Electronically Signed by: Dennise Jo 02/27/22 12:20 Clinical Dietitian [address] [id number]
--- NOTE | 2022-02-27 14:28 | CM.DPC ---
DCP Cont: Verified with Rex at [facility] that all is ready for their nurse to go into patient's home with feeding supplies. Had called over at surgery, found out that Dr. Guerrero is the surgeon today, for she had not yet seen patient. According to charge nurse, Mike, and Shaniqua, nurse, patient currently on oxygen, having some problems with secretions, so not yet medically ready for discharge today. Did update Rex at [facility], and will have more updates tomorrow if patient is medically ready for discharge. P: DCP to continue to follow. Plan is home with [facility], when stable, he has declined home health at this time. Abiola Malone, RONALDO/Mental Health Advanced Practice Nurse
--- NOTE | 2022-02-27 15:49 | RT ---
Attempted Nasopharyngeal suction with PT consent, PT did not tolerate very well and withdrew consent.
--- NOTE | 2022-02-27 16:07 | PM.CALLCOV.1 ---
Call Coverage Note Note Date of Patient Contact: 02/27/22 Time of Patient Contact: 16:39 Narrative of Care Provided: Discharge postponed due to thick oral secretions and intolerance of current tube feeds as seen in hyperglycemia. tube feeds will be changed to carb control feeding. RT to provide deep suction of secretions and pulmonary toilet. Patient currently has O2 requirement and may need home O2.
[2022-02-27] MEDS: INSULIN LISPRO 100 UNIT/ML 3ML VIAL SUBCUT (17:37)
--- NOTE | 2022-02-27 19:23 | PC.NURSE ---
Pt given TF bolus of glucerna this evening at 1830, of 180cc with 60cc flush x2. Pt with 30 cc Bile colored residual prior to bolus. He denies n/v or abdominal pain.
[2022-02-28] VITALS (13 sets, daily range): BP systolic 104–123; BP diastolic 45–62; PULSE 61–89; RESP 18–22; TEMP 36.1–36.9; O2SAT 86–98
[2022-02-28 06:01] LABS: Phosphorous 2.6 mg/dL (2.3-3.7)
--- NOTE | 2022-02-28 06:26 | PC.NURSE ---
Pt has been on high flow nasal canula all night. Needing to be increased to 7 L. pt desats to low 70's with any exertion. Pt needing assistance to urinate at the bedside, unsteady on his feet (needs help holding the urinal), Pt appears to still have a hard time managing his secretions. Dayshift nurse stated that he is having >30 cc residuals from the bolus feeding.
[2022-02-28] MEDS: SCOPOLAMINE 1 PATCH TOP (08:04)
[2022-02-28] MEDS: ENOXAPARIN 40 MG/0.4 ML SYRINGE SUBCUT (08:04)
[2022-02-28] MEDS: INSULIN LISPRO 100 UNIT/ML 3ML VIAL SUBCUT ×2 (08:05→18:46)
--- NOTE | 2022-02-28 08:34 | PC.NURSE ---
Addendum entered by Shaniqua Booker R.N. 02/28/22 14:40: Patient had 60cc of residual and bile before his feeding in tubing. Given only 220cc of feed, patient seemed to tolerated well with 120cc of water flush. His bowel tones are active but he has not had a bowel movement yet. He has his hf oxygen cannula in his mouth, and he is sating mid 90s on 3l Addendum entered by Shaniqua Booker R.N. 02/28/22 10:12: Gericare Aide is recommending that today we do patients feeds at 0800,1300, and 1900. She is worried about his breathing and wants to see if this will help with that. Will talk to patient and let him know what is happening. Original Note: Patient is alert and oriented x3, he denies pain. He has been able to get a fair amount of phlegm up. Scopalamine patch applied behind right ear. Given 1u of insulin for blood sugar of 160. Patients residual before tube feed was 10cc. Tolerated 280cc of low carb feed with 60ml flushes of water before and after feed.
--- NOTE | 2022-02-28 09:05 | P.PN_ITS ---
Subjective Subjective Date Patient Seen: 02/28/22 Time Patient Seen: 09:05 Interval history: C/o nausea. Thin and frail, incision is intact no infection. G tube functions well Exam Vital Signs (past 8 hours): - 02/28/22 04:25 02/28/22 06:00 02/28/22 07:43 Temperature 97.3 F L Pulse Rate 74 61 Respiratory Rate 22 Blood Pressure 116/62 Pulse Oximetry 96 93 96 Oxygen Delivery Method High Flow Nasal Cannula Oxygen Flow Rate 7 7 7 02/28/22 08:07 02/28/22 08:07 Temperature Pulse Rate Respiratory Rate Blood Pressure Pulse Oximetry 98 97 Oxygen Delivery Method High Flow Nasal Cannula High Flow Nasal Cannula Oxygen Flow Rate 7 4 Oxygen Delivery Method High Flow Nasal Cannula Oxygen Flow Rate 4 Narrative Exam Narrative: as above. No complications Objective Labs Result Diagrams: 02/27/22 06:55 Labs: Laboratory Results - last 24 hr 02/28/22 05:20 Phosphorus 2.6 PFSH Medical History (Updated 02/18/22 @ 08:11 by Tyson Celis MD) Diabetes type 2, controlled Essential tremor Gastroesophageal reflux disease Hx of benign neoplasm of brain Hx of bladder cancer Hx of renal calculi Hypertension Surgical History (Updated 02/21/22 @ 12:21 by Antonia Young RN) History of hydrocelectomy (06/19/08) Hx of bilateral inguinal hernia repair (02/02/20) Hx of craniotomy Hx of hernia repair (06/19/08) Family History Father Diabetes mellitus Social History marital status: household members: none occupational status: previously employed Smoking Status: Former smoker alcohol intake: current substance use type: does not use Assessment & Plan Post-op Postoperative Procedures: Procedures Operation Date: 02/24/22 07:45 Actual Procedure Side Surgeon p Open Gastrostomy Tube placement Not Applicable Tyson Celis MD Postoperative status: doing well Postoperative status narrative: toleration of feeds is complicated by h yperglycemia, tube feeds adjusted to carb control. Postoperative plan narrative: Eval for discharge to home with home health as patient wishes. May require SNF. Time Spent With Patient Time with patient: less than 15 minutes Quality VTE Deep Vein Thrombosis/Pulmonary Embolism Present on Admission: No
--- NOTE | 2022-02-28 12:18 | DIET.CONS2 ---
Dietary Inpatient Consultation Note Admission Date: 02/25/2022 10:35 Pt tolerating Glucerna 1.2 formula, pre-bolus BG this am 160, pt received 1U insulin coverage. Pt O2 requirements increased overnight from 2L to 6L. This is potentially a manifestation of refeeding syndrome which pt is high risk for. Pts refeeding labs remain WNL. Planning 3 of 5 full strength bolus feeds today, discussed with nursing. OK for pt to d/c below goal rate once cleared per surgery, [facility] to provide home teaching on d/c. Following for breathing, BGs, formula tolerance. Diet: 02/24/22 06:44 NPO Diet Diet Modifications: NPO Type: Strict 02/25/22 Lunch Tube Feeding Diet Diet Modifications: Safety Tray needed?: No TF Supplement type: Glucerna 1.2 wolfgang TF mode of delivery: Bolus Starting flow rate mL/hr: 0 Flow rate goal mL/hr: 0 Titration Schedule to reach Goal Rate: 0 Max total daily volume in mL: 600 Free fluid: 120 Free Water Frequency: Q4H Comment: Patient is at high risk of refeeding syndrome. REFER TO DIETARY NOTE Nutrition Type of Feeding Tube PEG 02/27/22 23:00 Type of Feeding Tube PEG 02/26/22 23:25 Type of Feeding Tube Gastrostomy 02/26/22 16:07 Type of Feeding Tube Gastrostomy 02/26/22 13:32 Electronically Signed by: Dennise Jo 02/28/22 12:18 Clinical Dietitian [address] [id number]
--- NOTE | 2022-02-28 14:32 | DIET.CONS2 ---
Dietary Inpatient Consultation Note Admission Date: 02/25/2022 10:35 If pt needs to go to SNF, dietary can send pt with up to two days worth of formula if SNF needs to special order. Diet: 02/24/22 06:44 NPO Diet Diet Modifications: NPO Type: Strict 02/25/22 Lunch Tube Feeding Diet Diet Modifications: Safety Tray needed?: No TF Supplement type: Glucerna 1.2 wolfgang TF mode of delivery: Bolus 280mL formula c 120mL free water flushes five times per day Nutrition Type of Feeding Tube PEG 02/27/22 23:00 Type of Feeding Tube PEG 02/26/22 23:25 Type of Feeding Tube Gastrostomy 02/26/22 16:07 Electronically Signed by: Dennise Jo 02/28/22 14:32 Clinical Dietitian [address] [id number]
--- NOTE | 2022-02-28 15:12 | CM.DPNOTE ---
Discharge Planning Note: Patient tolerating tube feedings via gastrostomy tube. Has had increased secretions and is now on a scopalamine patch. He is on O2. He would benefit from SNF given the fact that he is weak, lives alone and would have to administer own tube feedings. He continues to appear overwhelmed with what is happening. Called and left message for surgeon Dr Guerrero for request of PT/OT orders which SNF is requesting activity tolerance notes. Faxed referral with [facility] to [facility] and spoke with Lara, they are evaluating this afternoon and will get back to us. Clary Canseco RN/DCP
[2022-02-28] MEDS: SODIUM CHLORIDE 0.9% FLUSH 10 ML IV (20:36)
[2022-02-28] MEDS: ALBUTEROL/IPRATROPIUM 3 ML AMPUL INH ×2 (22:47→23:57)
--- NOTE | 2022-02-28 22:49 | DI.RAD.S_ITS ---
PROCEDURE: XR CHEST 1V INDICATIONS: Hypoxia TECHNIQUE: One view of the chest was acquired. COMPARISON: [place], [place], [place] CT FUSION SKULL 2 THIGH, 02/01/2022, 11:31. FINDINGS: Surgical changes and devices: None. Lungs and pleura: There are new patchy bilateral airspace opacities with a basilar predominance, right greater than left. Confluent left retrocardiac opacities are also demonstrated. There is a suspected small left pleural effusion. No pneumothorax. Mediastinum: There is a hiatal hernia redemonstrated. Heart size is normal. Bones and chest wall: No suspicious bony lesions. Overlying soft tissues appear unremarkable. IMPRESSION: 1. New patchy bilateral airspace opacities with a basilar predominance likely represent consolidation and pneumonia. 2. Left retrocardiac opacities may also represent consolidation and pneumonia versus atelectasis. Dictated by: Carlos Valentin M.D. on 03/01/2022 at 0:02 Approved by: Carlos Valentin M.D. on 03/01/2022 at 0:05
[2022-02-28 23:29] LABS: Add Manual Diff / Slide Review NO; Basophils Absolute Auto 0 /uL (0-100); Basophils Percent Auto 0.1 % (0-2); Eosinophils Absolute Auto 0 /uL (0-450); Eosinophils Percent Auto 0.1 % (2-4); Hematocrit 38.3 % (41-53); Hemoglobin 12.7 g/dL (13.5-17.5); Lymphocytes Absolute Auto 500 /uL (1100-4500); Lymphocytes Percent Auto 2.3 % (25-40); Mean Corpuscular HGB Conc 33.3 % (30-36); Mean Corpuscular Hemoglobin 32.2 PG (26-34); Mean Corpuscular Volume 96.6 fL (80-100); Monocytes Absolute Auto 600 /uL (0-900); Monocytes Percent Auto 2.8 % (3-14); Neutrophils Absolute Auto 20300 /uL (1500-7000); Neutrophils Percent Auto 94.7 % (50-75); Platelet Count 301 X10^3/uL (150-400); Red Blood Cell Count 3.96 X10^6/uL (4.5-5.9); Red Cell Distribution Width 13.8 % (11.6-14.8); White Blood Cell Count 21.4 X10^3/uL (4.5-11.0)
--- NOTE | 2022-02-28 23:31 | PC.NURSE ---
Care Management. Need information on next of kin or who is the DPOA. Nothing in summary.
--- NOTE | 2022-02-28 23:34 | PM.CN ---
History of Present Illness Consult details Date Patient Seen: 02/28/22 Time Patient Seen: 22:45 Chief complaint: SDC Reason for consult: Acute Resp Distress Requesting provider: Hiwot Guerrero Narrative: Alex Zimmerman is a 86 yr old male with a hx of brain cancer, craniotomy, bladder cancer, bilateral inguinal hernia, kidney stones, essential hypertension, essential tremor, hyperlipidemia, BPH, GERD, and a distant history of diabetes. Patient was admitted to general surgery by Dr. Celis fo severe esophageal dysphagia due to obstructive esophageal cancer with severe malnutrition requiring open gastrotomy tube placement. The hospitalist service was contacted this evening by Dr. Guerrero to consult regarding decompensating acute respiratory failure. Upon physical exam for consult patient is on a non-rebreather 15 L, 02Sat 82-86%, he has difficulty breathing, SOB, unable to verbalize as to communicate effectively. Patient is unable to sufficiently participate in ROS or HPI due to respiratory demand. Patient is able to shake his head and deny any chest pain, abdominal pain, extremity pain, or any other discomfort at this time. Patient also clearly demonstrated in front of respiratory therapy and RN at the bedside that he did not wish to be intubated/resuscitated and wanted his code status changed to a DNR. Patient's congestion/mucus is audible. Patient is a thin frail emaciated male, unable to establish orientation but responses and interactions are appropriate. Patient is in no acute distress at this time. At the time of consult patient's vitals not temp 98.5?, BP 123/55, HR 89, RR 20, O2 saturation 84% on 15 L non-rebreather. Last known laboratory findings on file were from 02/27/2022 BNP only: bicarb 37, glucose 150. Patient's PET scan from 02/01/2022 demonstrated an intense abnormal uptake in distal esophagus consistent with esophageal cancer, a moderate-sized hiatal hernia.? Noted focal uptake in the posterior wall of the gastric cardia with mildly increased FDG activity in the left hilum is indeterminate but suspicious for metastasis and are mildly enlarged, mildly hypermetabolic lymph nodes in upper abdomen, and a small right lower lobe lung nodule demonstrates low FDG uptake. Patient is NPO and receiving tube feedings Q 2-6 hrs. Review of pharmacy prescription records reveals that the patient is taking finasteride, sildenafil, primidone, rosuvastatin, and omeprazole-prescribed by Dr. Arzate. I reviewed H&P medical records from Dr. Jang orthopedics, Dr. Celis general surgery and Dr. Guerrero general surgery. None of the patient's PCP or other medical records were available for review. Per Dr. Celis H& P 02/17/2022: Patient is not entirely familiar with his history and a complete set of of records not available at this time. It appears that he has esophageal cancer was offered a esophagectomy with a gastric pull-up at the [facility] which he declined.? He is not currently undergoing any oncologic therapy.? He has severe difficulty swallowing.? For the past 6 weeks he has been unable to take any significant oral nutrition.? Thin liquids he is still able to pass but no solid food.? He has lost a substantial amount of weight over the past 6 months.? He has no intention of proceeding with any esophageal surgery. Internal Medicine hospitalist service will consult per the gracious request by Dr. Guerrero for acute respiratory failure, and chronic medical conditions: BPH, essential trauma, GERD, hyperlipidemia. General surgery Dr. Celis and Dr. Guerrero will manage the severe esophageal dysphagia due to obstructive esophageal cancer with severe malnutrition and Post-op gastrotomy tube placement. Meds Home Medications and Allergies Home Medications Medication Instructions Recorded Confirmed Type amoxicillin 875 mg-potassium 1 tab PO DAILY 02/24/22 02/24/22 History clavulanate 125 mg tablet finasteride 5 mg tablet 1 tab PO DAILY 02/24/22 02/24/22 History omeprazole 20 mg capsule,delayed 1 cap PO DAILY 02/24/22 02/24/22 History release primidone 50 mg tablet 1 tab PO DAILY 02/24/22 02/24/22 History rosuvastatin 10 mg tablet 1 tab PO DAILY 02/24/22 02/24/22 History sildenafil 50 mg tablet 1 tab PO DAILY 02/24/22 02/24/22 History oxycodone 5 mg/5 mL oral solution 5 mg (5 mL) TUBE Q4HR PRN Pain, 02/28/22 Rx Moderate (4-6) #100 mL Allergies Allergy/AdvReac Type Severity Reaction Status Date / Time Sulfa (Sulfonamide Allergy Unknown itching, Verified 02/24/22 06:45 Antibiotics) hives Review of Systems Review of Systems Narrative: Patient unable to officially participate in ROS, see HPI above. Exam Vital Signs (past 8 hours): - 02/28/22 16:00 02/28/22 18:00 02/28/22 20:00 Temperature 97.0 F L 98.5 F Pulse Rate 85 89 Respiratory Rate 20 20 Blood Pressure 117/51 L 123/55 L Pulse Oximetry 93 96 Oxygen Delivery Method High Flow Nasal Cannula Oxygen Flow Rate 15 10 02/28/22 22:47 Temperature Pulse Rate 89 Respiratory Rate 20 Blood Pressure Pulse Oximetry 86 L Oxygen Delivery Method Non -Rebreather Oxygen Flow Rate 15 Oxygen Delivery Method Non -Rebreather Oxygen Flow Rate 15 Narrative Exam Narrative: General: Patient is a thin frail emaciated elderly male in no acute distress at this time. HEENT: Normocephalic, atraumatic, mucous membranes are dry. Neck is supple and symmetric, trachea is midline. Negative for JVD Chest: Positive kyphoscoliosis, no nasal flaring, retractions, Positive tachypneic labored breathing. Increasing 02 demand,able only to provide one word answers rarely. Lungs: Auscultation of all lung cheung are wet, decreased, poor air exchange, shallow breathing, positive wheezes and rhonchi throughout. Cardio: regular rate and rhythm, no carotid bruit, no cardiac pulsations present. Abdomen: Soft nontender, gastrotomy tube in place Bowel sounds are present in all 4 quadrants. Musculoskeletal: Muscle tone is equal significant muscle wasting throughout, no crepitus, effusions, cyanosis, clubbing or edema present. intact radial and pedal pulses are normal. Skin: Warm dry and intact, No rashes, ulcerations or petechiae observed. Neuro: Appears Alert and orientated x3, sensation to touch intact, no gross deficits of cranial nerves observed. Psych: Patient has a malnourished wasting appearance, interactions and behavioral responses appear appropriate for age. Objective Labs Result Diagrams: 02/28/22 23:10 02/27/22 06:55 Labs: Laboratory Results - last 24 hr 02/28/22 02/28/22 05:20 23:10 WBC 21.4 H RBC 3.96 L Hgb 12.7 L Hct 38.3 L MCV 96.6 MCH 32.2 MCHC 33.3 RDW 13.8 Plt Count 301 Neut % (Auto) 94.7 H Lymph % (Auto) 2.3 L [place] % (Auto) 2.8 L Eos % (Auto) 0.1 L Baso % (Auto) 0.1 Neut # (Auto) 60882 H Lymph # (Auto) 500 L [place] # (Auto) 600 Eos # (Auto) 0 Baso # (Auto) 0 Phosphorus 2.6 PFSH Medical History (Updated 03/01/22 @ 00:[address] [facility]) BPH loc w urin obs/LUTS Diabetes type 2, controlled Essential tremor Gastroesophageal reflux disease Hx of benign neoplasm of brain Hx of bladder cancer Hx of renal calculi Hyperlipidemia Hypertension Surgical History History of hydrocelectomy (06/19/08) Hx of bilateral inguinal hernia repair (02/02/20) Hx of craniotomy Hx of hernia repair (06/19/08) Family History Father Diabetes mellitus Social History marital status: household members: none occupational status: previously employed Tobacco & Substance Use Smoking Status: Former smoker alcohol intake: current substance use type: does not use Assessment & Plan Assessment & Plan narrative: Alex Zimmerman is a 86 yr old male with a hx of brain cancer, craniotomy, bladder cancer, bilateral inguinal hernia, kidney stones, essential hypertension, essential tremor, hyperlipidemia, BPH, GERD, and a distant history of diabetes. Patient was admitted to general surgery by Dr. Celis on 02/24/2022 for severe esophageal dysphagia due to obstructive esophageal cancer with severe malnutrition requiring open gastrotomy tube placement. The hospitalist service was contacted this evening by Dr. Guerrero to consult regarding decompensating acute respiratory failure, as well as management of the patient's medical conditions. 1.Status Post obstructive esophageal cancer and subsequent severe acute on chronic protein calorie malnutrition postop day 1 status post gastric open gastrostomy tube placement. -managed by surgery (Dr. Celis and Dr. Guerrero) -NPO, tube feedings Q 2-6 hours -RELOCATION MANAGER consult: Goals of care evaluation, end of life goals, consider hospice consult, in home care/living situation community resource. -Dietary consult due to severe chronic protein calorie malnutrition-as evidence by BMI of 17.4 2. Acute respiratory Failure with metabolic alkalosis, acute, present on consult, not present on admission -respiratory consult ordered -stat checks x-ray, duo nebulizer, Solu-Medrol 60mg Now, incentive spirometry, suction PRN -patient is on 15 L non-rebreather with O2 saturations ranging from 80-86%-will trial patient on CPAP, if unsuccessful will increase to BiPAP and move patient to the ICU. -Solu-Medrol 60 mg IV QD, DuoNeb q.6 hours -be VBGs, CBC, CMP, Mag, TSH FT4, BNP, troponin, D-Dimer, procalcitonin, sputum culture, blood cultures x2, COVID, flu/A/B, RSV, MRSA -VBG is a: PH 7.5, pCO2 49.5, PO2 21, HC03 39, T CO2 40, O2 sat 39%, base excess 15.-on 15L non-rebreather -WBC 21.4 with a left shift neutrophils 20,300, HGB 12.7, HCT 38.3, HC03 36, BUN 29, initial troponin < 0.012, albumin 2.9, procalcitonin 0.80, BNP 1900, -glucose 229: will change glucose checks to Q6 HR while NPO/Tube feedings -TSH 0.10. low will add on FT4 and FT3 for evaluation for hyperthyroidism. -D-Dimer 1047: Age adjusted D-dimer 860-VTE possible-will order CTA r/o PE protocol. -EKG: Ventricular rate slightly tachycardic rate 102, with occasional PVCs, left axis deviation, right BBB possible inferior infarct-no previous EKG for comparison. Will trend Troponins pt denies CP. Recommend once resp demand/pneumonia has improved -possible stress, echo, and cardiology consult- though do not believe patients health would -Chest x-ray demonstrated:New patchy bilateral airspace opacities with a basilar predominance likely represent consolidation and pneumonia and a left retrocardiac opacities may also represent consolidation and pneumonia versus atelectasis. 3. Hospital-acquired pneumonia, resulting in acute respiratory failure with metabolic alkalosis, acute, present on consult -Will have blood cultures drawn/Sputum culture then initiate: Per Up-to-date: Zosyn 4.5 mg q.8 hours IV, Levaquin 750 mg Q 24 hours IV, and Vancomycin per pharmacy. -sputum culture, blood cultures x2-pending, D-Dimer, EKG, Tele-monitoring. -respiratory consult: -Solu-Medrol 60 mg IV QD, DuoNeb q.6 hours, incentive spirometry, suction as needed, repeat VBG is on 03/02/2022 -repeat labs CBC, CMP, Mag QD- monitor electrolytes 4. BPH with lower urinary obstruction, chronic, present on consult -continue finasteride and sildenafil -Bladder scans PRN -Notify if u/o <50cc/hr or <[id number], urinary retention >500cc -Consider U/A if s/s are not improving or urinary retention >500cc -If urinary retention >500 cc-straight cath, if > 500 cc urinary retention x2-place Swanson catheter 5. Hyperlipidemia, chronic, present on admission -Hold due to NPO status- rosuvastatin 6. GERD, chronic, present on admission -hold due to NPO status-omeprazole 7. Essential tremor, chronic, present on admission -hold due to NPO status-primidone Code status:DNR per- Patient Surrogate decision maker: Spouse is listed as patients contact Micheline HERNANDEZ PCR:ordered DVT/VTE prophylaxis: Lovenox 30 mg and SCDs bilaterally Disposition:Consult I have utilized all available immediate resources to obtain, update, or review the patient's current medications. I confirmed that the patient's advanced care plan is present, Code status is documented and/or surrogate decision maker is listed in the patient's medical record. Time Spent With Patient Critical Care time: I spent a total of [] minutes of critical care time on this patient's care today; this time is exclusive of procedural time.
[2022-02-28 23:42] LABS: Alanine Aminotransferase 17 IU/L (<50); Albumin 2.9 g/dL (3.5-5.0); Albumin Globulin Ratio 0.8 (1.0-2.8); Alkaline Phosphatase 126 U/L (38-126); Aspartate Aminotransferase 21 IU/L (17-59); Bilirubin Total 1.1 mg/dL (0.2-1.3); Blood Urea Nitrogen 29 mg/dL (9-20); Calcium 9.5 mg/dL (8.4-10.2); Carbon Dioxide 36 mmol/L (22-32); Chloride 99 mmol/L (98-107); Estimated Glomerular Filt Rate > 60 mL/min (>60); Globulin 3.6 g/dL (1.7-4.1); Glucose 229 mg/dL (80-110); HEMOLYSIS < 15 (0-50); Magnesium 1.9 mg/dL (1.6-2.3); Potassium 3.7 mmol/L (3.4-5.1); Sodium 141 mmol/L (137-145); Total Protein 6.5 g/dL (6.3-8.2)
[2022-02-28 23:53] LABS: NT-proBNP (BNP-Adult 18+) 1900 pg/mL (<450); Troponin I < 0.012 ng/mL (0.01-0.034)
[2022-02-28] MEDS: methylPREDNISolone 125 MG/2 ML VIAL 60 MG IV (23:55)
[2022-03-01] VITALS (9 sets, daily range): BP systolic 111–138; BP diastolic 57–64; PULSE 84–102; RESP 21–28; TEMP 36.2–36.8; O2SAT 89–97
[2022-03-01 00:30] LABS: HCO3 VBG 39 mmol/L (23-28); PCO2 VBG 49.5 mmHg (45-50); PO2 VBG 21 mmHg (35-45)
[2022-03-01 00:31] LABS: Oxygen Saturation VBG 39 % (70-75); Total CO2 VBG 40 mmol/L (24-29)
[2022-03-01 01:41] LABS: D Dimer 1047 ng/mL (<230)
--- NOTE | 2022-03-01 01:53 | DI.CT.S_ITS ---
PROCEDURE: CT ANGIO CHEST PE PROTOCOL INDICATIONS: Acute resp failure/dimer 1047 TECHNIQUE: After the administration of intravenous contrast, 2 mm thick sections acquired from the pulmonary apices to the posterior costophrenic angles. 3-dimensional maximum intensity projection (MIP) coronal and sagittal reformats were then acquired through the thorax. For radiation dose reduction, the following was used: automated exposure control, adjustment of mA and/or kV according to patient size. COMPARISON: [facility], CT, CT CHEST ABDOMEN WO CON, 01/11/2022, 9:07. [facility], CR, XR CHEST 1V, 02/28/2022, 22:53. [facility], [place], [place] PET CT FUSION SKULL 2 THIGH, 02/01/2022, 11:31. FINDINGS: Image quality: Excellent. Pulmonary arteries: Pulmonary arteries are normal in size, and demonstrate no intraluminal filling defects to suggest central pulmonary embolism. Lungs and pleura: Consolidations are seen in the posterior lower lobes bilaterally. Scattered small pulmonary nodules are seen that predominantly demonstrate a tree-in-bud configuration, suggesting an infectious or inflammatory etiology. Trace bilateral pleural effusions. No pneumothorax. Central and peripheral airways are patent. Mediastinum: Heart size is normal, without pericardial effusion. Moderate coronary artery calcifications. A few mildly prominent mediastinal lymph nodes are seen that are nonspecific and may be reactive. The largest is a 1.2 cm precarinal lymph node (73/5). Ascending thoracic aorta measures up to 4.2 cm in diameter at the level of the right pulmonary artery, unchanged. Mild aortic atherosclerotic calcifications. Distal esophageal wall thickening is seen, as demonstrated on PET-CT from 02/01/2022. There is a moderate to large hiatal hernia. Bones and chest wall: Mild diffuse soft tissue anasarca. No suspicious bony lesions. Degenerative changes are seen in the included spine. Thyroid is unremarkable. No axillary or supraclavicular adenopathy. Abdomen: Free air is seen under the diaphragm. A percutaneous gastrostomy tube is partially imaged. Large simple appearing left upper pole renal cyst. Visualized upper abdominal solid organs appear normal in the early arterial phase of enhancement. IMPRESSION: 1. No acute pulmonary embolus. 2. Bilateral lower lobe consolidations are suspicious for pneumonia or aspiration. 3. Trace bilateral pleural effusions. 4. Esophageal wall thickening and a moderate hiatal hernia are redemonstrated as seen on the PET-CT from 02/01/2022, although not well evaluated due to timing of the contrast bolus and the presence of anasarca. 5. Mildly enlarged mediastinal lymph nodes are nonspecific and may be reactive or related to mathew metastatic disease. 6. Moderate upper abdominal pneumoperitoneum. Recommend correlation for recent surgery or instrumentation. If this finding is not expected based on the patient's history or the patient has abdominal symptoms, then CT of the abdomen and pelvis is recommended for further evaluation. 7. 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 There is no significant discrepancy when compared to the overnight preliminary report. Dictated by: Yash Oconnell M.D. on 03/01/2022 at 8:04 Approved by: Yash Oconnell M.D. on 03/01/2022 at 8:23
[2022-03-01 05:19] LABS: Alanine Aminotransferase 19 IU/L (<50); Albumin 3.1 g/dL (3.5-5.0); Albumin Globulin Ratio 0.8 (1.0-2.8); Alkaline Phosphatase 120 U/L (38-126); Aspartate Aminotransferase 23 IU/L (17-59); Bilirubin Total 1.2 mg/dL (0.2-1.3); Blood Urea Nitrogen 29 mg/dL (9-20); Calcium 9.9 mg/dL (8.4-10.2); Carbon Dioxide 38 mmol/L (22-32); Chloride 97 mmol/L (98-107); Estimated Glomerular Filt Rate > 60 mL/min (>60); Globulin 3.7 g/dL (1.7-4.1); Glucose 234 mg/dL (80-110); HEMOLYSIS < 15 (0-50); Potassium 3.8 mmol/L (3.4-5.1); Sodium 141 mmol/L (137-145); Total Protein 6.8 g/dL (6.3-8.2)
[2022-03-01] MEDS: ALBUTEROL/IPRATROPIUM 3 ML AMPUL INH (05:19)
[2022-03-01] MEDS: LORazepam 2 MG/ML INJ 0.5 MG IV (05:27)
[2022-03-01 05:31] LABS: Troponin I 0.015 ng/mL (0.01-0.034)
[2022-03-01] MEDS: levoFLOXacin 750 MG/150 ML PIGGYBACK 100 MG IV (05:32)
--- NOTE | 2022-03-01 05:44 | PC.NURSE ---
Pt refused the nasal MRSA swab at this time, will attempt later.
--- NOTE | 2022-03-01 05:45 | PC.NURSE ---
Pt had low O2 sats 70' to 80's, at 2300, called RT to come . Breathing treatments given, solumedrol and CPAP was tried, pt was very uncomfortable with CPAP, O2 sats in the low to mid 90's. Rebreather mask tried, O2 at 15 liters, pt sats in mid to low 90's. Pt O2 sats at mid 90's at this time.
--- NOTE | 2022-03-01 06:35 | PC.NURSE ---
Pt refused any nasal swab at this time, will readdrress later.
[2022-03-01] MEDS: PIPERACILLIN/TAZO 4.5 GM in SODIUM CHLORIDE 0.9% 100 ML IV (08:28)
--- NOTE | 2022-03-01 09:01 | DIET.CONS2 ---
Dietary Inpatient Consultation Note Admission Date: 02/25/2022 10:35 Pt with AC BG 235 and increased O2 requirements. Discussed c nursing, staying at 280mL formula c 120mL free water flushes tid for now, not advancing feed to goal yet today. Diet: 02/24/22 06:44 NPO Diet Diet Modifications: NPO Type: Strict 02/25/22 Lunch Tube Feeding Diet Diet Modifications: Safety Tray needed?: No TF Supplement type: Glucerna 1.2 wolfgang TF mode of delivery: Bolus Starting flow rate mL/hr: 0 Flow rate goal mL/hr: 0 Titration Schedule to reach Goal Rate: 0 Max total daily volume in mL: 2,000 Free fluid: 120 Free Water Frequency: Q4H Comment: Patient is at high risk of refeeding syndrome. REFER TO DIETARY NOTE Nutrition Type of Feeding Tube PEG 02/28/22 23:00 Type of Feeding Tube PEG 02/27/22 23:00 Electronically Signed by: Dennise Jo 03/01/22 09:01 Clinical Dietitian [address] [address]
--- NOTE | 2022-03-01 09:02 | PM.PNPO.1 ---
Subjective Subjective Date Patient Seen: 03/01/22 Time Patient Seen: 09:02 Interval history: Respiratory distress escalated during the night and work up revealed aspiration pneumonia. Feeding tube is w/o complication. Hyperglycemia being followed. Exam Vital Signs (past 8 hours): - 03/01/22 02:30 03/01/22 03:30 03/01/22 05:43 Temperature 98.3 F Pulse Rate 99 H 96 H 91 H Respiratory Rate 28 H 24 22 Blood Pressure 127/58 L Pulse Oximetry 89 L 95 95 Oxygen Delivery Method Oxygen Flow Rate 15 15 15 03/01/22 02:00 03/01/22 05:19 03/01/22 06:00 Temperature Pulse Rate 96 H Respiratory Rate 24 Blood Pressure Pulse Oximetry 91 93 Oxygen Delivery Method Non -Rebreather Non -Rebreather Non -Rebreather Oxygen Flow Rate 15 15 15 Oxygen Delivery Method Non -Rebreather Oxygen Flow Rate 15 Const General: cooperative, frail appearing and ill appearing Nutritional Appearance: cachectic HENIL Head: normocephalic and atraumatic GI Other: incision is dry and intact. G tube is functioning. Neuro General: patient alert and patient awake Objective Labs Result Diagrams: 02/28/22 23:10 03/01/22 04:55 Labs: Laboratory Results - last 24 hr 02/28/22 02/28/22 02/28/22 23:10 23:10 23:10 WBC 21.4 H RBC 3.96 L Hgb 12.7 L Hct 38.3 L MCV 96.6 MCH 32.2 MCHC 33.3 RDW 13.8 Plt Count 301 Neut % (Auto) 94.7 H Lymph % (Auto) 2.3 L [place] % (Auto) 2.8 L Eos % (Auto) 0.1 L Baso % (Auto) 0.1 Neut # (Auto) 13981 H Lymph # (Auto) 500 L [place] # (Auto) 600 Eos # (Auto) 0 Baso # (Auto) 0 D-Dimer VBG pH VBG pCO2 VBG pO2 VBG HCO3 VBG Total CO2 VBG O2 Saturation VBG Base Excess Sodium 141 Potassium 3.7 Chloride 99 Carbon Dioxide 36 H BUN 29 H Creatinine 0.88 Estimated GFR > 60 BUN/Creatinine Ratio 33.0 H Glucose 229 H Calcium 9.5 Magnesium Total Bilirubin 1.1 AST 21 ALT 17 Alkaline Phosphatase 126 Troponin I < 0.012 NT-Pro-B Natriuret Pep 1900 H Total Protein 6.5 Albumin 2.9 L Globulin 3.6 Albumin/Globulin Ratio 0.8 L Procalcitonin 0.80 H TSH 02/28/22 02/28/22 02/28/22 23:10 23:10 23:20 WBC RBC Hgb Hct MCV MCH MCHC RDW Plt Count Neut % (Auto) Lymph % (Auto) [place] % (Auto) Eos % (Auto) Baso % (Auto) Neut # (Auto) Lymph # (Auto) [place] # (Auto) Eos # (Auto) Baso # (Auto) D-Dimer VBG pH 7.50 H VBG pCO2 49.5 VBG pO2 21 L VBG HCO3 39 H VBG Total CO2 40 H VBG O2 Saturation 39 L VBG Base Excess 15.0 H Sodium Potassium Chloride Carbon Dioxide BUN Creatinine Estimated GFR BUN/Creatinine Ratio Glucose Calcium Magnesium 1.9 Total Bilirubin AST ALT Alkaline Phosphatase Troponin I NT-Pro-B Natriuret Pep Total Protein Albumin Globulin Albumin/Globulin Ratio Procalcitonin TSH 0.10 L 03/01/22 03/01/22 03/01/22 01:16 04:55 04:55 WBC RBC Hgb Hct MCV MCH MCHC RDW Plt Count Neut % (Auto) Lymph % (Auto) [place] % (Auto) Eos % (Auto) Baso % (Auto) Neut # (Auto) Lymph # (Auto) [place] # (Auto) Eos # (Auto) Baso # (Auto) D-Dimer 1047 H VBG pH VBG pCO2 VBG pO2 VBG HCO3 VBG Total CO2 VBG O2 Saturation VBG Base Excess Sodium 141 Potassium 3.8 Chloride 97 L Carbon Dioxide 38 H BUN 29 H Creatinine 0.88 Estimated GFR > 60 BUN/Creatinine Ratio 33.0 H Glucose 234 H Calcium 9.9 Magnesium Total Bilirubin 1.2 AST 23 ALT 19 Alkaline Phosphatase 120 Troponin I 0.015 NT-Pro-B Natriuret Pep Total Protein 6.8 Albumin 3.1 L Globulin 3.7 Albumin/Globulin Ratio 0.8 L Procalcitonin TSH [facility] Medical History (Updated 03/01/22 @ 00:33 by GENIE Ventura-) BPH loc w urin obs/LUTS Diabetes type 2, controlled Essential tremor Gastroesophageal reflux disease Hx of benign neoplasm of brain Hx of bladder cancer Hx of renal calculi Hyperlipidemia Hypertension Surgical History History of hydrocelectomy (06/19/08) Hx of bilateral inguinal hernia repair (02/02/20) Hx of craniotomy Hx of hernia repair (06/19/08) Family History Father Diabetes mellitus Social History marital status: household members: none occupational status: previously employed Smoking Status: Former smoker alcohol intake: current substance use type: does not use Assessment & Plan Post-op Postoperative Procedures: Procedures Operation Date: 02/24/22 07:45 Actual Procedure Side Surgeon p Open Gastrostomy Tube placement Not Applicable Tyson Celis MD Postoperative status: other Postoperative status narrative: S/p open G tube w/o complications. Post op complication is aspiration pneumonia that is being treated by hospitalist. Postoperative plan narrative: Agree with Dr. Bolivar that hospice should be involved. He is not a candidate of discharge to home. Time Spent With Patient Time with patient: 15-24 minutes Quality VTE Deep Vein Thrombosis/Pulmonary Embolism Present on Admission: No
[2022-03-01] MEDS: MORPHINE 2 MG/ML INJ IV ×5 (09:18→23:44)
[2022-03-01] MEDS: methylPREDNISolone 125 MG/2 ML VIAL 60 MG IV (09:22)
[2022-03-01] MEDS: INSULIN LISPRO 100 UNIT/ML 3ML VIAL SUBCUT (09:23)
[2022-03-01] MEDS: ENOXAPARIN 40 MG/0.4 ML SYRINGE SUBCUT (09:24)
[2022-03-01] MEDS: SODIUM CHLORIDE 0.9% FLUSH 10 ML IV ×3 (09:24→21:00)
--- NOTE | 2022-03-01 10:19 | PC.NURSE ---
Day shift: Pt refused Swanson cath placement at this time. Explained the benefits of Swanson. Pt still refused at this time. Will continue to ask Pt. End of life care per Dr Bolivar. Call light in reach and bed alarm is on.
--- NOTE | 2022-03-01 10:56 | CM.DPNOTE ---
Addendum entered by Leslie Canseco R.N. 03/01/22 15:20: Spouse and sister in law arrived this afternoon to visit with patient and speak with doctor. Patient is comfort care and lying in bed comfortably with O2 on, minimally responsive. Pastor Golden is helping to make family comfortable. Notified Dr Bolivar of spouse arrival. Since patient is most likely imminent will no longer pursue any transfers to outside care facilities, especially in light of minimal resources available (or SNF not willing to accept) in the next few days. P: Follow for needs. Clary Canseco RN/DCP Original Note: Discharge Planning note: Met with patient in his room this morning while Dr Bolivar doing her assessment. Patient has been desaturating and is now on a non-rebreather mask a and less alert but communicating. No DPOA copy in his chart. Dr Bolivar has called spouse and she has one that states DNR. This DCP spoke with his spouse Mackenzie who is at [facility] and she and her sister in law will come up and visit this afternoon at 1400 and bring paperwork (POLST etc). This DCP called and spoke with Lara arora our pending referral with [facility] and mentioned that patient may be hospice and in such case they would charge $325.00 per day and would have to be paid 30 days up front. This DCP also has a call out to the grievance coordinator at [facility], regarding accepting the patient at the [facility] where his spouse lives. ([facility]). Spoke with [facility], they are out two weeks (d/t staffing). Call to Joe at [facility] and soonest could do would be Sunday, March 04. Dr Bolivar has made patient Comfort Care. He is resting comfortably w/ O2 on. Let Dr Bolivar know spouse will be up this afternoon. P: Follow case. Clary Canseco RN/DCP
[2022-03-01] MEDS: SCOPOLAMINE 1 PATCH TOP (12:01)
--- NOTE | 2022-03-01 12:44 | DIET.CONS2 ---
Dietary Inpatient Consultation Note Admission Date: 02/25/2022 10:35 Pt transitioned to comfort care. Electronically Signed by: Dennise Jo 03/01/22 12:44 Clinical Dietitian [address] [address]
--- NOTE | 2022-03-01 18:13 | P.PN_ITS ---
Subjective Subjective Date Patient Seen: 03/01/22 Interval history: Asked to see this 86 y/o male admitted for PEG placement who developed respiratory failure likely secondary to Aspiration Pneumonia. Patient required 15 liters high flow oxygen. After discussion with his plans in place to switch to comfort measures only. Patient is very hard to understand, he is short of breath and remains hypoxic Exam Vital Signs (past 8 hours): Oxygen Delivery Method Non -Rebreather Oxygen Flow Rate 15 Narrative Exam Narrative: cachetic ill appearing male lying in bed Resp Other: Decreased breath sounds with scattered rhonchi bilaterally Cardio Other: RRR nl sl S2 GI Other: Abd: soft/ non tender/ peg in place Extrem Other: No edema Objective Labs Result Diagrams: 02/28/22 23:10 03/01/22 04:55 Labs: Laboratory Results - last 24 hr 02/28/22 02/28/22 02/28/22 23:10 23:10 23:10 WBC 21.4 H RBC 3.96 L Hgb 12.7 L Hct 38.3 L MCV 96.6 MCH 32.2 MCHC 33.3 RDW 13.8 Plt Count 301 Neut % (Auto) 94.7 H Lymph % (Auto) 2.3 L [place] % (Auto) 2.8 L Eos % (Auto) 0.1 L Baso % (Auto) 0.1 Neut # (Auto) 21617 H Lymph # (Auto) 500 L [place] # (Auto) 600 Eos # (Auto) 0 Baso # (Auto) 0 D-Dimer VBG pH VBG pCO2 VBG pO2 VBG HCO3 VBG Total CO2 VBG O2 Saturation VBG Base Excess Sodium 141 Potassium 3.7 Chloride 99 Carbon Dioxide 36 H BUN 29 H Creatinine 0.88 Estimated GFR > 60 BUN/Creatinine Ratio 33.0 H Glucose 229 H Calcium 9.5 Magnesium Total Bilirubin 1.1 AST 21 ALT 17 Alkaline Phosphatase 126 Troponin I < 0.012 NT-Pro-B Natriuret Pep 1900 H Total Protein 6.5 Albumin 2.9 L Globulin 3.6 Albumin/Globulin Ratio 0.8 L Procalcitonin 0.80 H TSH 02/28/22 02/28/22 02/28/22 23:10 23:10 23:20 WBC RBC Hgb Hct MCV MCH MCHC RDW Plt Count Neut % (Auto) Lymph % (Auto) [place] % (Auto) Eos % (Auto) Baso % (Auto) Neut # (Auto) Lymph # (Auto) [place] # (Auto) Eos # (Auto) Baso # (Auto) D-Dimer VBG pH 7.50 H VBG pCO2 49.5 VBG pO2 21 L VBG HCO3 39 H VBG Total CO2 40 H VBG O2 Saturation 39 L VBG Base Excess 15.0 H Sodium Potassium Chloride Carbon Dioxide BUN Creatinine Estimated GFR BUN/Creatinine Ratio Glucose Calcium Magnesium 1.9 Total Bilirubin AST ALT Alkaline Phosphatase Troponin I NT-Pro-B Natriuret Pep Total Protein Albumin Globulin Albumin/Globulin Ratio Procalcitonin TSH 0.10 L 03/01/22 03/01/22 03/01/22 01:16 04:55 04:55 WBC RBC Hgb Hct MCV MCH MCHC RDW Plt Count Neut % (Auto) Lymph % (Auto) [place] % (Auto) Eos % (Auto) Baso % (Auto) Neut # (Auto) Lymph # (Auto) [place] # (Auto) Eos # (Auto) Baso # (Auto) D-Dimer 1047 H VBG pH VBG pCO2 VBG pO2 VBG HCO3 VBG Total CO2 VBG O2 Saturation VBG Base Excess Sodium 141 Potassium 3.8 Chloride 97 L Carbon Dioxide 38 H BUN 29 H Creatinine 0.88 Estimated GFR > 60 BUN/Creatinine Ratio 33.0 H Glucose 234 H Calcium 9.9 Magnesium Total Bilirubin 1.2 AST 23 ALT 19 Alkaline Phosphatase 120 Troponin I 0.015 NT-Pro-B Natriuret Pep Total Protein 6.8 Albumin 3.1 L Globulin 3.7 Albumin/Globulin Ratio 0.8 L Procalcitonin TSH [facility] Medical History (Updated 03/01/22 @ 00:33 by GONZÁLEZ Ventura) BPH loc w urin obs/LUTS Diabetes type 2, controlled Essential tremor Gastroesophageal reflux disease Hx of benign neoplasm of brain Hx of bladder cancer Hx of renal calculi Hyperlipidemia Hypertension Surgical History History of hydrocelectomy (06/19/08) Hx of bilateral inguinal hernia repair (02/02/20) Hx of craniotomy Hx of hernia repair (06/19/08) Family History Father Diabetes mellitus Social History marital status: household members: none occupational status: previously employed Smoking Status: Former smoker alcohol intake: current substance use type: does not use Assessment & Plan Assessment & Plan narrative: Status Post obstructive esophageal cancer and subsequent severe acute on chronic protein calorie malnutrition postop day 1 status post gastric open gastrostomy tube placement. -patient is now comfort measures -defer nutrition at this time 2. Acute respiratory Failure with metabolic alkalosis, acute, present on consult, not present on admission -likely secondary to aspiration pneumonia -now on comfort measures -antibiotics discontinued, oxygen discontinued -morphine/ativan for comfort 4. BPH with lower urinary obstruction, chronic, present on consult - discontinue all medications 5. Hyperlipidemia, chronic, present on admission -Hold due to NPO status- rosuvastatin 6. GERD, chronic, present on admission -hold due to NPO status-omeprazole 7. Essential tremor, chronic, present on admission -hold due to NPO status-primidone Patient is preterminal, I doubt he will survive to get a hospice consult. Will observe over the next 24 hours and reassess. Time Spent With Patient Critical Care time: I spent a total of [] minutes of critical care time on this patient's care today; this time is exclusive of procedural time. Quality VTE Deep Vein Thrombosis/Pulmonary Embolism Present on Admission: No
[2022-03-01 18:35] LABS: Mean Corpuscular HGB Conc 32.5 % (30-36); Mean Corpuscular Hemoglobin 31.9 PG (26-34); Mean Corpuscular Volume 98.4 fL (80-100); Platelet Count 306 X10^3/uL (150-400); Red Blood Cell Count 4.06 X10^6/uL (4.5-5.9); Red Cell Distribution Width 14.4 % (11.6-14.8); White Blood Cell Count 19.7 X10^3/uL (4.5-11.0)
[2022-03-01 18:56] LABS: Add Manual Diff / Slide Review YES
[2022-03-01 19:06] LABS: Neutrophils Absolute Manual 19109 /uL (3000-5900); Total Cells Counted 100
[2022-03-01 19:07] LABS: RBC Morphology Normal Morphology
[2022-03-01 21:54] LABS: Free T4, Direct Thyroxine 1.86 ng/dL (0.78-2.19)
[2022-03-01 22:09] LABS: Free T3, Triiodothyronine Free 4.52 pg/mL (2.77-5.27)
--- NOTE | 2022-03-02 01:53 | PM.DDS.1 ---
Discharge Summary History of Illness Narrative: Alex Zimmerman is a 86 yr old male with a hx of brain cancer, craniotomy, bladder cancer, bilateral inguinal hernia, kidney stones, essential hypertension, essential tremor, hyperlipidemia, BPH, GERD, and a distant history of diabetes.? Patient was admitted to general surgery by Dr. Celis fo severe esophageal dysphagia due to obstructive esophageal cancer with severe malnutrition requiring open gastrotomy tube placement.? The hospitalist service was contacted this evening by Dr. Guerrero to consult regarding decompensating acute respiratory failure.? Upon physical exam for consult patient is on a non-rebreather 15 L, 02Sat 82-86%, he has difficulty breathing, SOB, unable to verbalize as to communicate effectively.? Patient is unable to sufficiently participate in ROS or HPI due to respiratory demand.? Patient is able to shake his head and deny any chest pain, abdominal pain, extremity pain, or any other discomfort at this time.? Patient also clearly demonstrated in front of respiratory therapy and RN at the bedside that he did not wish to be intubated/resuscitated and wanted his code status changed to a DNR. Patient's congestion/mucus is audible.? Patient is a thin frail emaciated male, unable to establish orientation but responses and interactions are appropriate.? Patient is in no acute distress at this time.? At the time of consult patient's vitals not temp 98.5?, BP 123/55, HR 89, RR 20, O2 saturation 84% on 15 L non-rebreather.? Last known laboratory findings on file were from 02/27/2022? BNP only: bicarb 37, glucose 150.? Patient's PET scan from 02/01/2022 demonstrated an intense abnormal uptake in distal esophagus consistent with esophageal cancer, a moderate-sized hiatal hernia.? Noted focal uptake in the posterior wall of the gastric cardia with mildly increased FDG activity in the left hilum is indeterminate but suspicious for metastasis and? are mildly enlarged, mildly hypermetabolic lymph nodes in upper abdomen, and a small right lower lobe lung nodule demonstrates low FDG uptake.? Patient is NPO and receiving tube feedings Q 2-6 hrs.? Review of pharmacy prescription records reveals that the patient is taking finasteride, sildenafil, primidone, rosuvastatin, and omeprazole-prescribed by Dr. Arzate.? I reviewed H&P medical records from Dr. Jang orthopedics, Dr. Celis general surgery and Dr. Guerrero general surgery.? None of the patient's PCP or other medical records were available for review. Per Dr. Celis H& P 02/17/2022:? Patient is not entirely familiar with his history and a complete set of of records not available at this time. It appears that he has esophageal cancer was offered a esophagectomy with a gastric pull-up at the [facility] which he declined.? He is not currently undergoing any oncologic therapy.? He has severe difficulty swallowing.? For the past 6 weeks he has been unable to take any significant oral nutrition.? Thin liquids he is still able to pass but no solid food.? He has lost a substantial amount of weight over the past 6 months.? He has no intention of proceeding with any esophageal surgery. Internal Medicine hospitalist service will consult per the gracious request by Dr. Guerrero for acute respiratory failure, and chronic medical conditions: BPH, essential trauma, GERD, hyperlipidemia.? General surgery Dr. Celis and Dr. Guerrero will manage the severe esophageal dysphagia due to obstructive esophageal cancer with severe malnutrition and Post-op gastrotomy tube placement. 03/01/[address] Bolivar Consult Note:After discussion with his plans in place to switch to comfort measures only.? Patient is very hard to understand, he is short of breath and remains hypoxic Hospital Course Date of Admission: 02/25/22 10:35 Primary care provider: Angel Arzate MD Consults: 02/24/22 09:05 Consult to Palliative Care Routine Comment: esophageal cancer Consulting Provider: Milana Schwartz 02/24/22 09:07 Consult to Dietitian, Adult Routine Comment: Reason For Exam: esophageal cancer new feeding tube malnutrition 02/24/22 09:08 Consult to Home Health Routine Comment: tube feeds Reason For Exam: tube feeds 02/24/22 10:07 Consult to Respiratory Therapy Evaluate & Treat Comment: Physician Instructions: Evaluate and treat 02/28/22 22:48 Consult to Respiratory Therapy Evaluate & Treat Comment: Cpap if not improving change to Bipap Physician Instructions: Evaluate and treat 03/01/22 01:32 Consult to Dietitian, Adult Routine Comment: Reason For Exam: Severe malnutrition BMI 17.4 03/01/22 01:33 Consult to PERSONAL FINANCIAL PLANNER - [employer] Routine Comment: eval home living situation & support PERSONAL FINANCIAL PLANNER Consult needed for:: [facility] Res Need End of Life/Goal Care Dis 03/01/22 09:41 Consult to Discharge Planning Routine Comment: Consult to Hospice Referral Urgent Comment: Discharge provider: Opal Poe Discharge Diagnosis: 1. Status Post obstructive esophageal cancer and subsequent severe acute on chronic protein calorie malnutrition postop day 1 status post gastric open gastrostomy tube placement. -patient is now comfort measures 2. Acute respiratory Failure 3. Metabolic alkalosis 4. Aspiration Pneumonia 5. BPH with lower urinary obstruction 6. Hyperlipidemia 7. GERD 8. Essential tremor Hospital Course: Alex Zimmerman an 86 yr old male with a hx of brain cancer, craniotomy, bladder cancer, bilateral inguinal hernia, kidney stones, essential hypertension, essential tremor, hyperlipidemia, BPH, GERD, and a distant history of diabetes who was admitted to general surgery by Dr. Celis for severe esophageal dysphagia due to obstructive esophageal cancer with severe malnutrition for gastrotomy tube placement. Gastrotomy tube was placed on 02/24/2022, on 02/28/2022 Dr. Guerrero general surgery to [facility] did that the hospitalist internal medicine service be consulted. Patient was found to be in acute respiratory failure and metabolic alkalosis. The patient and his in consultation decided to be referred to hospice placed on comfort care and removal of all interventional medications and management on 03/01/2022. At approximately 1:24 a.m. the patient due to his severe obstructive esophageal cancer, chronic protein calorie malnutrition, acute respiratory failure, metabolic alkalosis secondary to aspiration pneumonia. Objective Labs Result Diagrams: 03/01/22 04:55 03/01/22 04:55 Labs: Laboratory Results - last 24 hr 02/28/22 03/01/22 03/01/22 23:10 04:55 04:55 WBC RBC Hgb Hct MCV MCH MCHC RDW Plt Count Neut % (Auto) Lymph % (Auto) [place] % (Auto) Eos % (Auto) Baso % (Auto) Lymph # (Auto) [place] # (Auto) Baso # (Auto) Total Counted Seg Neutrophils % Band Neutrophils % Lymphocytes % (Manual) Monocytes % (Manual) Neutrophils # (Manual) RBC Morphology Sodium 141 Potassium 3.8 Chloride 97 L Carbon Dioxide 38 H BUN 29 H Creatinine 0.88 Estimated GFR > 60 BUN/Creatinine Ratio 33.0 H Glucose 234 H Calcium 9.9 Total Bilirubin 1.2 AST 23 ALT 19 Alkaline Phosphatase 120 Troponin I 0.015 Total Protein 6.8 Albumin 3.1 L Globulin 3.7 Albumin/Globulin Ratio 0.8 L Free T4 1.86 Free T3 03/01/22 03/01/22 04:55 04:55 WBC 19.7 H RBC 4.06 L Hgb 13.0 L Hct 40.0 L MCV 98.4 MCH 31.9 MCHC 32.5 RDW 14.4 Plt Count 306 Neut % (Auto) Not Reportable Lymph % (Auto) Not Reportable [place] % (Auto) Not Reportable Eos % (Auto) Not Reportable Baso % (Auto) Not Reportable Lymph # (Auto) Not Reportable [place] # (Auto) Not Reportable Baso # (Auto) Not Reportable Total Counted 100 Seg Neutrophils % 96.0 H Band Neutrophils % 1.0 L Lymphocytes % (Manual) 1.0 L Monocytes % (Manual) 2.0 Neutrophils # (Manual) 13942 H RBC Morphology Normal morphology Sodium Potassium Chloride Carbon Dioxide BUN Creatinine Estimated GFR BUN/Creatinine Ratio Glucose Calcium Total Bilirubin AST ALT Alkaline Phosphatase Troponin I Total Protein Albumin Globulin Albumin/Globulin Ratio Free T4 Free T3 4.52
[2022-03-02 02:09] LABS: Influenza A - CEPHEID Flu A NEGATIVE (NEGATIVE); Influenza B - CEPHEID Flu B NEGATIVE (NEGATIVE); Respiratory Syncytial Virus Negative (Negative)
--- NOTE | 2022-03-02 02:11 | PC.NURSE ---
Addendum entered by Freddy Toth R.N. 03/02/22 03:56: At 0352, [facility] staff came in and took patient's body, all patient's belongings were also handed over to him. Original Note: Shift Note: Patient was unresponsive, appears uncomfortable, at room air, with IV access at right forearm and PEG tube, incontinent. Patient turned to position of comfort, partial bath rendered, brief changed. IV morphine given as patient appears in pain and uncomfortable. Supplemental oxygen administered by nasal cannula at 4lpm. At 0115, checked patient and noted pulseless, HR-0, Patient was seen and verified by KATHERYN Read and pronounced at 0120. Nurse Coordinator, Abiola was informed. 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 Post-mortem care done.
[2022-03-02 02:24] LABS: COVID-19 CEPHEID PCR (VTM/NP) Negative (Negative)
== END 2022-03-02 03:00 | disposition expired | DRG 640 ==
LOC: OR 02-27 07:29 → AC 02-27 07:29
PROVIDERS: Nurse Practitioner Family; Admitting Provider Surgery; PCP Family Medicine; Referring Provider Surgery; Visit Provider Surgery
PROC: 0DH60UZ Insertion of Feeding Device into Stomach, Open Approach (ICD-10-PCS; principal; 2022-02-24 07:45)
DX: E43 Unspecified severe protein-calorie malnutrition (principal); J69.0 Pneumonitis due to inhalation of food and vomit; J96.90 Respiratory failure, unspecified, unspecified whether with hypoxia or hypercapnia; C15.9 Malignant neoplasm of esophagus, unspecified; Z68.1 Body mass index [BMI] 19.9 or less, adult; E87.3 Alkalosis; K22.2 Esophageal obstruction; R13.10 Dysphagia, unspecified; E11.65 Type 2 diabetes mellitus with hyperglycemia; N40.1 Benign prostatic hyperplasia with lower urinary tract symptoms; Z51.5 Encounter for palliative care; Z66 Do not resuscitate; Z20.822 Contact with and (suspected) exposure to COVID-19; Z87.891 Personal history of nicotine dependence
CPT/HCPCS: 0241U; 36415; 43830; 71045; 71275; 80048; 80053; 82805; 82962; 83735; 83880; 84100; 84145; 84439; 84443; 84481; 84484; 85007; 85025; 85379; 87040; 87070; 87077; 87147; 87186; 87205; 87635; 93005; 93010; 94640; 94660; 94760; 94762; C9803; J0690; J1650; J1815; J1956; J2060; J2270; J2543; J2704; J2930; J3010; J3475; Q9967